=== PATIENT | female | born 1990 | race African-American/Black ===

== ENCOUNTER 2023-05-18 13:03 | Outpatient (AMB) | payer OTHER, SELFPAY ==
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
[2023-05-18 13:19] VITALS: BP 122/80; PULSE 82; TEMP 36.4; O2SAT 97; BMI 39.3
== END 2023-05-18 13:49 | disposition home or self-care (01) ==
PROVIDERS: Visit Provider Nurse Practitioner Family
DX: S89.92XA Unspecified injury of left lower leg, initial encounter (principal)
CPT/HCPCS: 99213

== ENCOUNTER → 2023-09-04 14:39 | Outpatient (BNVA) | payer OTHER, SELFPAY | PROVIDERS: Visit Provider Physician Assistant Surgical ==

== ENCOUNTER 2023-10-16 08:04 | Outpatient (AMB) | payer OTHER, SELFPAY ==
--- NOTE | 2023-10-16 14:00 | A.OFFVIS_ITS ---
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 BMI 42.1: Details: Start time: 1.25pm, End time: 2.10pm ?I spent 40 minutes speaking with the patient on the phone plus an additional 5 minutes reviewing and updating records for a total of 45 minutes HPI Comments Details: Previous weight loss efforts: Keto diet, Atkins, Intermittent fasting, 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 Wakes up: 7am, Sleeps: 10pm to 5am Breakfast: Orgain protein shake Lunch: 1-2pm (sandwich or cereal) Dinner: 6pm (tacos, sandwich) Snacks: 10am (cereal bars or yogurts), 3-4pm (chips) Exercise: has a stepper Fluids: Coffee/Tea: none, soda: Regular Sprite, juice: iced tea with calories, ETOH: none PFSH Medical History (Updated 10/16/23 @ 14:02 by Barrie Perez MD) GERD (gastroesophageal reflux disease) Morbid obesity Surgical History (Updated 10/16/23 @ 14:02 by Barrie Perez MD) Hx of tonsillectomy Family History (Updated 09/04/23 @ 15:01 by Yasmeen Escobar CMA) Maternal Aunt Breast cancer Social History (Updated 09/04/23 @ 15:01 by Yasmeen Escobar CMA) Alcohol intake: current Alcohol intake frequency: holidays/special occasions only Alcohol type: wine and hard liquor Patient Tobacco Use Status: Never used Tobacco Physical Exam Vital Signs: BMI result Body Mass Index 42.1 Telehealth Telehealth Location of provider rendering services: practice address Location of patient: address on file Patient Identification confirmed using: Name, : Yes Telehealth method: voice only Patient verbally consented to treatment: Yes Patient verbally consented to billing insurance company: Yes Patient informed of any privacy concerns related to visit: Yes Minutes spent on Phone/Video with Pt.: 45 Assessment & Plan Assessment & Plan (1) Morbid obesity: Code(s): E66.01 - Morbid (severe) obesity due to excess calories Category: Medical Plan: 1.? Plan for lap sleeve gastrectomy. If diaphragmatic or ventral hernias are present at time of surgery, these will be repaired laparoscopically as well. Risks and complications were discussed in detail including possible conversion to an open procedure, anastomotic leak, bleeding requiring transfusion, small bowel obstruction, , DVT and pulmonary embolism, cardiac, or pulmonary complications, as residential complications such as anastomotic ulcer, insufficient weight loss and vitamin deficiencies. I emphasized the importance of close follow-up, adherence to instructions and good communication. 2.? Please send me weight measurements as soon as possible and then once a week. Always include your diet and exercise plan. 3. Start the stepper. Goal is to burn 2000 calories per week on exercise, which means either 300 calories daily, or 400 calories 5 days per week, or 500 calories 4 days per week, or 650 calories 3 days per week. Start also weight exercises with 20-30lbs for chest/shoulders/abdomen and 40-50lbs for thighs doing 2 sets of 15 repetitions each. 4. The best choice would be to purchase a stationary bike, elliptical or treadmill at home that can track calories. Let me know if you do so I can give you an exercise plan. 5.?It is important of avoiding and for at least 18 months postoperatively and has been discussed at the infosession. 6. Goal is to lose at least 1.5-2lbs per week 7. Goal to lose 10% of your weight before surgery, which is about 27lbs. Ultimate weight goal: 250lbs before surgery 8. Please follow the diet plan exactly without any change. If you don't like something about the plan or you feel hungry you need to communicate with me so I can help you revise the plan. You should not change the plan yourself. Orders: Orders Insulin 10/16/23 E66.01 - Morbid (severe) obesity due to excess calories, K21.9 - Gastro-esophageal reflux disease without esophagitis H Pylori Breath Test 10/16/23 E66. - Morbid (severe) obesity due to excess calories, K21.9 - Gastro-esophageal reflux disease without esophagitis Comprehensive Met. Panel 10/16/23 E66. - Morbid (severe) obesity due to excess calories, K21.9 - Gastro-esophageal reflux disease without esophagitis Zinc 10/16/23 E66. - Morbid (severe) obesity due to excess calories, K21.9 - Gastro-esophageal reflux disease without esophagitis Vitamin B1 10/16/23 E66. - Morbid (severe) obesity due to excess calories, K21.9 - Gastro-esophageal reflux disease without esophagitis Vitamin A 10/16/23 E66. - Morbid (severe) obesity due to excess calories, K21.9 - Gastro-esophageal reflux disease without esophagitis Vitamin D 25-OH Total 10/16/236. - Morbid (severe) obesity due to excess calories, K21.9 - Gastro-esophageal reflux disease without esophagitis US abdomen comp w elastography 10/16/23. - Morbid (severe) obesity due to excess calories, K21.9 - Gastro-esophageal reflux disease without esophagitis Hemoglobin A1c 10/16/23 E66. - Morbid (severe) obesity due to excess calories, K21.9 - Gastro-esophageal reflux disease without esophagitis Complete Blood Count Auto Diff 10/16/236. - Morbid (severe) obesity due to excess calories, K21.9 - Gastro-esophageal reflux disease without esophagitis Lipid Panel 10/16/236. - Morbid (severe) obesity due to excess calories, K21.9 - Gastro-esophageal reflux disease without esophagitis IRON PROFILE 10/16/23 E66. - Morbid (severe) obesity due to excess calories, K21.9 - Gastro-esophageal reflux disease without esophagitis Vitamin B12 and Folate 10/16/23 E66. - Morbid (severe) obesity due to excess calories, K21.9 - Gastro-esophageal reflux disease without esophagitis C Reactive Protein 10/16/23 E66. - Morbid (severe) obesity due to excess calories, K21.9 - Gastro-esophageal reflux disease without esophagitis TSH reflex Free T4 10/16/23 E66. - Morbid (severe) obesity due to excess calories, K21.9 - Gastro-esophageal reflux disease without esophagitis Ferritin 10/16/23 E66.01 - Morbid (severe) obesity due to excess calories, K21.9 - Gastro-esophageal reflux disease without esophagitis XR chest 2V 10/16/23 E66.01 - Morbid (severe) obesity due to excess calories, K21.9 - Gastro-esophageal reflux disease without esophagitis ECG 12 lead EKG 10/16/23 E66.01 - Morbid (severe) obesity due to excess calories, K21.9 - Gastro-esophageal reflux disease without esophagitis FL upper GI w air 10/16/23 E66.01 - Morbid (severe) obesity due to excess calories, K21.9 - Gastro-esophageal reflux disease without esophagitis Referrals Behavioral Health Referral E66.01 - Morbid (severe) obesity due to excess calories, K21.9 - Gastro-esophageal reflux disease without esophagitis Nutrition/Dietitian Referral E66.01 - Morbid (severe) obesity due to excess calories, K21.9 - Gastro-esophageal reflux disease without esophagitis
[2023-10-16 14:12] VITALS: BMI 42.1
== END 2023-10-17 16:00 | disposition home or self-care (01) ==
LOC: HO.HBS 08:04
PROVIDERS: PCP Internal Medicine; Visit Provider Surgery
DX: E66.01 Morbid (severe) obesity due to excess calories (principal)
CPT/HCPCS: 99204

== ENCOUNTER → 2023-10-16 08:04 | Outpatient (BNVA) | payer OTHER, SELFPAY | PROVIDERS: PCP Internal Medicine; Visit Provider Surgery ==

== ENCOUNTER 2023-10-30 09:21 | Outpatient (REF) | payer OTHER, SELFPAY ==
--- NOTE | ~2023-10-30 | XR_ITS ---
EXAMINATION: XR chest 2V CLINICAL INFORMATION: Reason for Exam E66.01 - Morbid (severe) obesity due to excess calories COMPARISON: None TECHNIQUE: 2 views of the chest FINDINGS: Clear lungs. No pneumothorax or pleural effusion. Normal cardiomediastinal silhouette. XR/XR chest 2V Impression: * Clear lungs.
--- NOTE | ~2023-10-30 | US_ITS ---
EXAMINATION: US COMPLETE ABDOMEN WITH LIVER ELASTOGRAPHY CLINICAL INFORMATION: Morbid obesity. COMPARISON: None available. TECHNIQUE: Real-time imaging of the abdominal viscera. Noninvasive ultrasound liver fibrosis assessment is performed using Vladimir ElastPQ point quantification shear wave elastography (2D-SWE) with a C5-2 MHz transducer. Multiple elastography samples are obtained. FINDINGS: PANCREAS: Normal. The visualized pancreatic head and body are normal in appearance. The remainder of the pancreas is obscured from visualization by the overlying bowel gas. ABDOMINAL AORTA: The proximal, middle, and distal aortic segments are normal in caliber. INFERIOR VENA CAVA: Visualized portions are normal. LIVER: The liver demonstrates normal contour and increased echogenicity. No focal lesion or intrahepatic biliary duct dilatation. The right lobe measures 17.1 cm in length. The left lobe measures 9.1 cm in length. Portal flow is towards the liver (hepatopetal). Shear wave liver elastography median stiffness is 1.79 m/s (reference: normal median stiffness is 1.3 m/s or less). IQR/median stiffness to assess sampling precision is 0.16 (reference: good quality data set is IQR/median stiffness of 0.15 or less). GALLBLADDER: Normal. The gallbladder is physiologically distended without evidence of stones, sludge, polyps, wall thickening or pericholecystic fluid. COMMON BILE DUCT: Normal in caliber measuring 0.2 cm in diameter. RIGHT KIDNEY: Normal. No hydronephrosis. No renal calculi or focal parenchymal lesions. The kidney measures 11.4 cm in maximum dimension. LEFT KIDNEY: At the lower pole, a 5 mm nonobstructing calculus is seen, with twinkle artifact. No hydronephrosis. No renal calculi or focal parenchymal lesions. The kidney measures 11.5 cm in maximum dimension. SPLEEN: Normal. The spleen measures 10.4 cm in maximum dimension. FREE FLUID: None. US/US abdomen comp w elastography IMPRESSION: 1. There is generalized increase in hepatic echotexture, consistent with fatty infiltration or hepatocellular disease. Please correlate clinically. No focal hepatic mass or intrahepatic biliary dilatation is seen. 2. There is borderline hepatomegaly. 3. Liver elastography: Although measurements are suggestive of compensated advanced chronic liver disease, there is statistical variability of the sampling which decreases accuracy. 4. 5 mm nonobstructing left renal lower pole calculus is seen. REFERENCE: Society of Radiologists in Ultrasound Liver Stiffness Thresholds (2020): LIVER STIFFNESS THRESHOLDS: *Liver Stiffness equal or less than 1.3 m/s: High probability of being normal. *Liver Stiffness less than 1.7 m/s: In the absence of other known clinical signs, rules out compensated advanced chronic liver disease. *Liver Stiffness 1.7-2.1 m/s: Suggestive of compensated advanced chronic liver disease but need further test for confirmation. *Liver Stiffness over 2.1 m/s: Rules in compensated advanced chronic liver disease. *Liver Stiffness over 2.4 m/s: Suggestive of clinically significant portal hypertension. QUALITY OF DATA SET: *IQR/Median value equal or less than 0.15 implies a quality data set. *IQR/Median value over 0.15 implies a poor quality data set. SIGNIFICANT CHANGE FROM PRIOR EXAM: Significant change if liver stiffness measurement is 10% or greater from prior exam. OTHER CONSIDERATIONS: The stage of liver fibrosis may be overestimated in the setting of acute hepatitis, liver inflammation, elevated liver function tests, hepatic vascular congestion, obstructive cholestasis, non-fasting state, and infiltrative diseases such as amyloidosis and lymphoma. In some patients with NAFLD, the liver stiffness thresholds for compensated advanced chronic liver disease may be lower. In causes other than viral hepatitis and NAFLD, liver stiffness thresholds are not well established.
== END 2023-10-30 09:22 | disposition home or self-care (01) ==
LOC: HO.US 09:21
PROVIDERS: PCP Internal Medicine; Visit Provider Surgery
DX: E66.01 Morbid (severe) obesity due to excess calories (principal); K21.9 Gastro-esophageal reflux disease without esophagitis
CPT/HCPCS: 71046; 76700; 76981

== ENCOUNTER 2023-11-04 14:25 | Outpatient (AMB) | payer OTHER, SELFPAY ==
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
== END 2023-11-04 14:38 | disposition home or self-care (01) ==
LOC: HO.HBST 14:25
PROVIDERS: PCP Internal Medicine; Visit Provider Counselor Mental Health
DX: F48.9 Nonpsychotic mental disorder, unspecified (principal); E66.01 Morbid (severe) obesity due to excess calories
CPT/HCPCS: 90791

== ENCOUNTER → 2023-11-04 14:25 | Outpatient (BNVA) | payer OTHER, SELFPAY | PROVIDERS: PCP Internal Medicine; Visit Provider Counselor Mental Health ==

== ENCOUNTER 2023-11-06 08:29 | Outpatient (REF) | payer OTHER, SELFPAY ==
[2023-11-06 08:50] LABS: MANUAL DIFF FLAG NO
[2023-11-06 08:59] LABS: Basophils Percent Auto 0.3 % (0-2); Eosinophils Absolute Auto 0.1 X10*3/uL (0.0-0.4); Eosinophils Percent Auto 1.2 % (0-4); Hematocrit 32.1 % (37.0-47.0); Hemoglobin 9.3 g/dl (12.0-16.0); Imm Gran Abs Auto 0.03 X10*3/uL (0.00-0.03); Imm Gran Pct Auto 0.4 % (0.0-0.4); Lymphocytes Absolute Auto 2.8 X10*3/uL (1.2-4.9); Lymphocytes Percent Auto 37.7 % (20-40); Mean Corpuscular Hemoglobin 19.9 pg (27.0-33.0); Mean Corpuscular Volume 68.7 fL (80.0-98.0); Mean Platelet Volume 8.4 fL (9.4-12.3); Monocytes Absolute Auto 0.4 X10*3/uL (0.1-1.2); Monocytes Percent Auto 5.5 % (2-11); Neutrophils Absolute Auto 4.1 x10*3/uL (2.0-8.3); Neutrophils Percent Auto 54.9 % (45-73); Platelet Count 433 X10*3/uL (160-400); Red Blood Count 4.67 X10*6/uL (4.20-5.50); Red Cell Distribution Width 18.8 % (11.0-16.0); White Blood Count 7.5 X10*3/uL (4.8-10.8)
[2023-11-06 09:07] LABS: Estimated Average Glucose 128 mg/dL; Hemoglobin A1c % 6.1 % (<6.0)
[2023-11-06 09:48] LABS: Alanine Aminotransferase 20 U/L (0-31); Albumin Level 3.8 g/dL (3.5-5.0); Alkaline Phosphatase 82 U/L (39-117); Anion Gap 12 (12-20); Aspartate Amino Transferase 15 U/L (5-31); Bilirubin Total 0.2 mg/dL (0.0-1.0); Blood Urea Nitrogen 9 mg/dL (9-16); C Reactive Protein 2.22 mg/dL (< or = 0.50); Calcium 9.2 mg/dL (8.4-10.2); Carbon Dioxide 24 mmol/L (22-29); Chloride 108 mmol/L (96-108); Cholesterol 148 mg/dL (<200); Estimated Glomerular Filt Rate > 60; Glucose Random 98 mg/dL (60-115); HDL Cholesterol 58 mg/dL (>40); Iron 16 mcg/dL (30-160); LDL Cholesterol Calculated 78 mg/dL (<100); Percent Iron Saturation 4 % (15-50); Potassium 4.3 mmol/L (3.3-5.1); Sodium 140 mmol/L (135-145); Total Iron Binding Capacity 397 mcg/dL (228-428); Total Protein 7.4 g/dL (6.5-8.0); Triglycerides 62 mg/dL (<150); Unsaturated Iron Binding 381 ug/dL
[2023-11-06 09:56] LABS: TSH reflex Free T4 2.97 uIU/mL (0.32-4.0)
[2023-11-06 10:11] LABS: Ferritin 8 ng/mL (10-122); Insulin 17 uU/mL (2-29)
[2023-11-06 11:15] LABS: Folate 8.3 ng/mL (> or = 4.0); Vitamin B12 411 pg/mL (200-900)
--- NOTE | 2023-11-06 12:59 | ECG_ITS ---
Test Reason : E66.01 Blood Pressure : / mmHG Vent. Rate : 071 BPM Atrial Rate : 071 BPM P-R Int : 146 ms QRS Dur : 094 ms QT Int : 410 ms P-R-T Axes : 027 035 034 degrees QTc Int : 445 ms Normal sinus rhythm Normal ECG No previous ECGs available Referred By: Barrie Perez Electronically Signed By:Gaurang Avelar
[2023-11-10 23:02] LABS: Zinc 50 mcg/dL (60-130)
[2023-11-11 00:38] LABS: Vitamin A 24 mcg/dL (38-98)
[2023-11-12 15:28] LABS: Vitamin B1 8 nmol/L (8-30)
== END 2023-11-06 08:30 | disposition home or self-care (01) ==
LOC: HO.LAB 08:29
PROVIDERS: PCP Internal Medicine; Visit Provider Surgery
DX: E66.01 Morbid (severe) obesity due to excess calories (principal); K21.9 Gastro-esophageal reflux disease without esophagitis
CPT/HCPCS: 36415; 80053; 80061; 82306; 82607; 82728; 82746; 83036; 83525; 83540; 84425; 84443; 84590; 84630; 85025; 86140; 93005

== ENCOUNTER → 2023-11-06 12:59 | Outpatient (BNV) | payer OTHER, SELFPAY | PROVIDERS: PCP Internal Medicine; Visit Provider Internal Medicine Cardiovascular Disease | DX: E66.01 Morbid (severe) obesity due to excess calories (principal); K31.9 Disease of stomach and duodenum, unspecified | CPT/HCPCS: 93010 ==

== ENCOUNTER 2023-11-18 08:52 | Outpatient (REF) | payer OTHER, SELFPAY ==
--- NOTE | ~2023-11-18 | FL_ITS ---
EXAMINATION: XR FLUOROSCOPY UPPER GI WITH AIR CLINICAL INFORMATION: Preop evaluation prior to bariatric surgery COMPARISON: None TECHNIQUE: Fluoroscopic air contrast upper GI examination was performed utilizing standard techniques with thin and thick barium and effervescent granules. Numerous spot images were obtained. FINDINGS: Dual and single contrast images of the esophagus demonstrate normal caliber, contour, and mucosal pattern. No evidence of stricture, mass, or ulcerations identified. Esophageal peristalsis was normal. A small type I hiatal hernia is present. Significant gastroesophageal reflux is seen up to the thoracic inlet. Dual contrast and single contrast images of the stomach demonstrated a normal contour. Evaluation of the superior wall and greater curvature is somewhat limited by suboptimal barium coating. The gastric rugal folds have a thickened appearance. There is prominence of the areae gastricae. No masses or ulcerations seen. Contrast freely passed into the gastric antrum and duodenal bulb without delay. Single and air-contrast images of the duodenal bulb demonstrate no abnormality. The duodenal sweep has a normal appearance, course, and mucosal fold appearance. No malrotation. The imaged proximal jejunum has a normal fold pattern and caliber. FLUOROSCOPY TIME: 3 minutes 44 seconds Number of Spot Images: 8 Number of Cine: 10 DOSE AREA PRODUCT: 3303 uGy-m2 (microgray-meter squared) FL/FL upper GI w air IMPRESSION: 1. Small type I hiatal hernia. 2. Severe gastroesophageal reflux. 3. Thickened appearance of the gastric rugal folds that likely represents gastritis. This procedure was performed by Bubba Parks PA-C, and supervised by Dr. Caldwell
== END 2023-11-18 08:53 | disposition home or self-care (01) ==
LOC: HO.XRAY 08:52
PROVIDERS: PCP Internal Medicine; Visit Provider Surgery
DX: E66.01 Morbid (severe) obesity due to excess calories (principal); K21.9 Gastro-esophageal reflux disease without esophagitis
CPT/HCPCS: 74246

== ENCOUNTER → 2023-11-18 08:54 | Outpatient (BNV) | payer OTHER, SELFPAY | PROVIDERS: PCP Internal Medicine; Visit Provider Physician Assistant Surgical | DX: K21.9 Gastro-esophageal reflux disease without esophagitis (principal); E66.01 Morbid (severe) obesity due to excess calories; Z01.818 Encounter for other preprocedural examination | CPT/HCPCS: 74246 ==

== ENCOUNTER 2023-11-19 08:11 | Outpatient (AMB) | payer OTHER, SELFPAY ==
[2023-11-19 08:33] VITALS: BP 124/80; PULSE 86; TEMP 36.6; O2SAT 95; BMI 42.1
--- NOTE | 2023-11-19 08:33 | MHC.OFFWIV ---
Intake Vital Signs 11/19/23 08:33 Height 5 ft 8 in Weight 277 lb BMI 42.1 BP 124/80 Blood Pressure Location Rt brachial Position Sitting Pulse 86 Pulse Source Pulse Oximeter Temp 97.8 F Temp Source Oral Pulse Oximetry (%) 95 Oxygen Delivery Method Room Air Intake Visit Reasons: EP bronchitis cough Intake Note: pt is here for cough, suspects bronchitis Patient Tobacco Use Status: Never used Tobacco Allergies amoxicillin Allergy (Unknown, Verified 11/19/23 08:33) nausea and vomiting Penicillins Adverse Reaction (Intermediate, Verified 11/19/23 08:33) Vomiting Do you need a note to return to daycare/school/sports/work: No HPI HPI Comments History of Present Illness Details 33 y/o female patient who presents to walk in clinic with c/o cough since thursday. [facility] Medical History (Updated 11/11/23 @ 14:27 by Barrie Perez MD) GERD (gastroesophageal reflux disease) Morbid obesity Surgical History (Updated 10/16/23 @ 14:02 by Barrie Perez MD) Hx of tonsillectomy Family History (Updated 09/04/23 @ 15:01 by Yasmeen Escobar CMA) Maternal Aunt Breast cancer Social History (Updated 09/04/23 @ 15:01 by Yasmeen Escobar CMA) Alcohol intake: current Alcohol intake frequency: holidays/special occasions only Alcohol type: wine and hard liquor Patient Tobacco Use Status: Never used Tobacco Review of Systems Const All systems reviewed & are unremarkable except as noted in HPI and below Physical Exam Vital Signs: Last Vital Signs Temp 97.8 F 11/19/23 08:33 Pulse 86 11/19/23 08:33 BP 124/80 11/19/23 08:33 Pulse Ox 95 11/19/23 08:33 Oxygen Delivery Method Room Air 11/19/23 08:33 BMI result Body Mass Index 42.1 Const General: comfortable and no acute distress Nutritional Appearance: obese Orientation/consciousness: patient oriented x3 HEENT Head: Yes normocephalic Ears: external ears normal and TM abnormal bulging and with fluid behind the TM bilateral; not bullous, not perforated and not retracted General nose exam: Normal nasal mucous membranes and turbinates present Face and sinus: Yes sinuses nontender Throat: Yes posterior oropharynx normal Resp Effort & Inspection: normal respiratory effort, able to speak in complete sentences and Actively coughing Auscultation: clear to auscultation bilaterally, no crackles, no rales, no rhonchi and no wheezes Cardio Rate: regular rate Rhythm: regular rhythm Neuro General: patient oriented x3, gait normal and moves all extremities Psych Speech and movement: Normal speech and movement present Assessment & Plan Assessment & Plan (1) Cough in adult: Code(s): R05.9 - Cough, unspecified Plan: - OTC cough remedies - Warm fluids with honey - Acetaminophen for pain relief. Medications: New azithromycin 500 mg PO DAILY 3 tabs 0RF 3 days R05.9 - Cough, unspecified benzonatate 100 mg PO TID 30 caps 0RF R05.9 - Cough, unspecified Coding Level of Care Code Est Pt Level 3 (92623) Diagnoses Cough in adult R05.9 Time Spent (min) 15
== END 2023-11-19 10:27 | disposition home or self-care (01) ==
PROVIDERS: PCP Internal Medicine; Visit Provider Nurse Practitioner Family
DX: R05.9 Cough, unspecified (principal)
CPT/HCPCS: 99213

== ENCOUNTER 2023-12-09 12:45 | Outpatient (AMB) | payer OTHER, SELFPAY ==
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
== END 2023-12-09 13:20 | disposition home or self-care (01) ==
LOC: HO.HBST 13:17
PROVIDERS: PCP Internal Medicine; Visit Provider Counselor Mental Health
DX: F48.9 Nonpsychotic mental disorder, unspecified (principal); E66.01 Morbid (severe) obesity due to excess calories
CPT/HCPCS: 90832

== ENCOUNTER → 2023-12-09 12:45 | Outpatient (BNVA) | payer OTHER, SELFPAY | PROVIDERS: PCP Internal Medicine; Visit Provider Counselor Mental Health ==

== ENCOUNTER 2024-03-22 08:04 | Day surgery (SDC) | payer OTHER, SELFPAY ==
[2023-12-11 15:17] VITALS: BMI 42.1
--- NOTE | 2024-01-04 13:20 | P.CONAN_ITS ---
HPI - Anesthesia Eval Consult details Narrative: 34yo F for Upper Endoscopy PMFSH Active Problems Active Problems: All Active Problems Vitamin B12 deficiency (Acute) Vitamin A deficiency (Acute) Vitamin D deficiency (Acute) Anemia (Acute) Unspecified nonpsychotic mental disorder (Acute) GERD (gastroesophageal reflux disease) (Acute) Morbid obesity (Acute) Past Medical History Medical History (Updated 11/11/23 @ 14:27 by Barrie Perez MD) GERD (gastroesophageal reflux disease) Morbid obesity Family History Family History (Updated 09/04/23 @ 15:01 by Yasmeen Escobar CMA) Maternal Aunt Breast cancer Surgical History Surgical History (Updated 10/16/23 @ 14:02 by Barrie Perez MD) Hx of tonsillectomy Social History Social History (Updated 09/04/23 @ 15:01 by Yasmeen Escobar CMA) Alcohol intake: current Alcohol intake frequency: holidays/special occasions only Alcohol type: wine and hard liquor Patient Tobacco Use Status: Never used Tobacco Meds Allergies Allergy/AdvReac Type Severity Reaction Status Date / Time amoxicillin Allergy Unknown nausea and Verified 11/19/23 08:33 vomiting Penicillins AdvReac Intermediate Vomiting Verified 11/19/23 08:33 Home Medications ?Medication ?Instructions ?Recorded ?Confirmed ?Last Taken ?Type omeprazole 20 mg capsule,delayed 20 mg PO DAILY 10/16/23 12/11/23 Unknown His tory release Exam Height,Weight and Vital Signs: Height 5 ft 8 in Weight 125.645 kg Assessment and Plan Assessment Anesthesia Assessment: Chart Reviewed
[2024-03-22 08:11] VITALS: BP 141/74; PULSE 80; RESP 18; TEMP 36.4; O2SAT 96; BMI 44.1
[2024-03-22 08:25] LABS: UPreg QC Valid YES; Urine Pregnancy NEGATIVE (NEGATIVE)
[2024-03-22] MEDS: Lactated Ringers 1,000 ML 80 ML IVCONT (08:32)
--- NOTE | 2024-03-22 11:19 | MHC.SHP ---
Pre-Procedural Eval Section A - 24 Hr Update-Section A only Date of Service: 03/22/24 The patient is an INPATIENT: No The patient has been examined within 24 hours of the surgical procedure. The History & Physical has been completed within 30 days and I have reviewed it.: Yes Section B - Complete if H&P > 30 days Chief Complaint: obesity Details of Present Illness: GERD Relevant Family History (Specify if Yes): No Relevant Social History: None Present Medications: None Medical History: No relevant PMH History of Previous Operations: No relevant previous surgery Allergies: Allergies Allergy/AdvReac Type Severity Reaction Status Date / Time amoxicillin Allergy Unknown nausea and Verified 11/19/23 08:33 vomiting Penicillins AdvReac Intermediate Vomiting Verified 11/19/23 08:33 Review of Systems Sugical H&P ROS: Negative: Constitution, Cardiovascular, Respiratory, Neurological, Psychiatric, Hem-Onc, Allergic/Immunologic, Gastrointestinal, Genitourinary, Musculoskeletal, Integumentary, Endocrine and Eyes/Ears/Nose/Throat Exam Surgical H&P Exam: Normal: HEENT, Normal: Heart, Normal: Lungs, Normal: Extremities, Normal: Abdomen, Normal: Skin and Normal: Neurological Plan Diagnosis/Plan: Unchanged (EGD to assess etiology of GERD. Risks of bleeding and perforation were discussed with the patient and she is in agreement with the plan.) I have reviewed the history and physical and performed a pertinent physical examination on my patient. No changes have occurred unless specified. Time Spent With Patient Time: Total time managing care of this patient today ____ minutes.
--- NOTE | 2024-03-22 11:21 | P.BOP_ITS ---
Brief Operative Note Date of Service: 03/22/24 Pre-op diagnosis: GERD Post-op diagnosis: same Procedure: PROCEDURE DATE: 03/22/2024 PREOPERATIVE DIAGNOSIS: GERD POSTOPERATIVE DIAGNOSIS: ?Same as above. 1) small diaphragmatic hernia PROCEDURE: Hxelzsan-pakkwp-ouvzawexmyew with biopsies Surgeon: Joaquin Perez M.D.. Ph.D. Product Test Engineer: None ? Anesthesia: IV sedation Estimated blood loss: ?Minimal FINDINGS AND PROCEDURE: ? OPERATIVE INDICATIONS: ?The patient is a 34 year old female known to me who is interested in bariatric surgery. The patient has GERD. Based on this information I recommended an upper endoscopy to evaluate the patient's symptoms. Risks and complications of the surgery were discussed with the patient in advance particularly the possibility of perforation or bleeding that may require surgical intervention. The patient understood the risks and was in agreement with the plan. ? PROCEDURE: After informed consent was obtained by the patient, the patient was ?transferred to the Operating Room and was placed in the supine position.? After successful induction of IV sedation, a mouth block was inserted and the patient was placed in the left lateral decubitus position. An upper endoscopy was performed next, the oropharynx and esophagus appeared within the normal limits. There was a small 3cm hiatal hernia. The z-line was smooth. Two biopsies were obtained from the distal esophagus 2-3 cm proximal to the GE junction and two additional biopsies from the GE junction. The stomach was entered and it appeared to be of normal size. There was no gastritis. There was no stricture or ulcer. A biopsy was obtained from the gastric fundus and the antrum. No significant bleeding was noted from any of the biopsy sites. Retroflexion of the scope confirned the presence of a small diaphragmatic hernia. The scope was then advanced into the duodenum which appeared to be normal as well. At that point the duodenum ?and the stomach were decompressed and the scope was withdrawn from the patient's mouth. The patient extubated and was transferred in stable condition to the Recovery Room for further care. I was present and performed all steps of the procedure. There were no residents to assist with this case. Johnny Perez M.D., Ph.D. Surgeon: Barrie Perez MD Anesthesia: MAC Was an Product Test Engineer used for this Procedure?: No Estimated blood loss (mL): 0 IV fluids (mL): 400 Urine output (mL): 0 (No Barrios to record output) Pathology: other (1) antrum x1, 2) fundus x1, 3) GE junction x2, 4) distal esophagus x2) Condition: stable Disposition: PACU
[2024-03-22 12:09] VITALS: BP 131/78; PULSE 99; RESP 16; TEMP 36.6; O2SAT 98
[2024-03-22 12:14] VITALS: BP 124/80; PULSE 106; RESP 16; O2SAT 97
[2024-03-22 12:19] VITALS: BP 122/89; PULSE 103; RESP 16; O2SAT 95
[2024-03-22 12:24] VITALS: BP 128/73; PULSE 102; RESP 16; O2SAT 97
[2024-03-22 12:39] VITALS: BP 106/56; PULSE 87; RESP 16; TEMP 36.6; O2SAT 98
== END 2024-03-22 12:57 | disposition home or self-care (01) ==
PROVIDERS: Nurse Practitioner; PCP Internal Medicine; Visit Provider Surgery
PROC: 0DJ08ZZ Inspection of Upper Intestinal Tract, Via Natural or Artificial Opening Endoscopic (ICD-10-PCS; CPT 43235; principal; 2024-03-22 10:20)
DX: K21.9 Gastro-esophageal reflux disease without esophagitis (principal); E66.01 Morbid (severe) obesity due to excess calories; Z68.41 Body mass index [BMI] 40.0-44.9, adult; B96.81 Helicobacter pylori [H. pylori] as the cause of diseases classified elsewhere; K44.9 Diaphragmatic hernia without obstruction or gangrene; Z88.0 Allergy status to penicillin; Z79.899 Other long term (current) drug therapy
CPT/HCPCS: 43239; 81025; 88305; 88313; 88342; J1100; J1596; J2250; J2405; J2704

== ENCOUNTER → 2024-03-22 08:04 | Outpatient (BNV) | payer OTHER, SELFPAY | PROVIDERS: PCP Internal Medicine; Visit Provider Surgery | DX: K44.9 Diaphragmatic hernia without obstruction or gangrene (principal) | CPT/HCPCS: 43239 ==

== ENCOUNTER 2024-05-16 12:48 | Outpatient (REF) | payer OTHER, SELFPAY ==
[2024-05-18 15:58] LABS: H Pylori Breath Test Positive (Negative)
== END 2024-05-16 12:49 | disposition home or self-care (01) ==
LOC: HO.LNP 12:48
PROVIDERS: Surgery; PCP Internal Medicine; Visit Provider Physician Assistant Surgical
DX: Z11.0 Encounter for screening for intestinal infectious diseases (principal)
CPT/HCPCS: 83013; 99211

== ENCOUNTER 2024-06-16 08:57 | Outpatient (REF) | payer OTHER, SELFPAY ==
[2024-06-18 14:58] LABS: H Pylori Breath Test Negative (Negative)
== END 2024-06-16 08:58 | disposition home or self-care (01) ==
LOC: HO.LNP 08:57
PROVIDERS: PCP Internal Medicine; Visit Provider Physician Assistant Surgical
DX: A04.8 Other specified bacterial intestinal infections (principal)
CPT/HCPCS: 83013; 99211

== ENCOUNTER 2024-07-08 08:52 | Outpatient (AMB) | payer OTHER, SELFPAY ==
--- NOTE | 2024-07-08 08:53 | A.OFFVIS_ITS ---
VS Expanded 07/08/24 09:03 BP 127/74 Blood Pressure Location Rt brachial Blood Pressure Position Sitting Pulse 85 Pulse Source Pulse Oximeter Temp 97.9 F Temperature Source Temporal Artery Scan Pulse Oximetry 100 Oxygen Delivery Method Room Air Height 5 ft 8 in Weight 277 lb BMI 42.1 Body Fat % 49.8 Body Fat Mass 137.8 Fat Free Mass 139.2 Visceral Fat Rating 13.0 Body Water % 36.1 Body Water Mass 99.8 Muscle Mass/Score 132.0 Basal Metabolic Rate/Score 2,020 Intake Visit Reasons: OV Pre Op LSG 07/26/24 Allergies amoxicillin Allergy (Unknown, Verified 07/08/24 09:31) nausea and vomiting Penicillins Adverse Reaction (Intermediate, Verified 07/08/24 09:31) Vomiting Medication List - Last Reconciled 07/08/24 by Barrie Perez MD ondansetron 4 mg PO Q12H ondansetron HCl 4 mg PO Q6H PRN pantoprazole 40 mg PO DAILY polyethylene glycol 3350 17 grams PO DAILY sucralfate 10 mL PO BID HPI Comments Details: This is the preop visit for her upcoming surgery Wakes up: 7.30am, Sleeps: 12am Is using the Orgain shakes with almond milk Exercise: 45 min of the Arc x5/week [facility] Medical History (Updated 04/08/24 @ 18:03 by Barrie Perez MD) GERD (gastroesophageal reflux disease) Morbid obesity Surgical History Hx of tonsillectomy Family History Maternal Aunt Breast cancer Social History (Updated 07/08/24 @ 09:04 by Chelsie Goetz CMA) Alcohol intake: former Patient Tobacco Use Status: Never used Tobacco Physical Exam Vital Signs: Last Vital Signs Temp 97.9 F 07/08/24 09:03 Pulse 85 07/08/24 09:03 BP 127/74 07/08/24 09:03 Pulse Ox 100 07/08/24 09:03 Oxygen Delivery Method Room Air 07/08/24 09:03 BMI result Body Mass Index 42.1 GI Inspection: Yes normal to inspection and Yes obesity Palpation (GI): Soft to palpation Extrem Right lower extremity: normal to inspection Left lower extremity: normal to inspection Assessment & Plan Assessment & Plan (1) Morbid obesity: Code(s): E66.01 - Morbid (severe) obesity due to excess calories Category: Medical Plan: 1. Plan for lap sleeve gastrectomy including upper GI endoscopy. All tests has been completed and reviewed and the patient is cleared for the surgery. ?If diaphragmatic or ventral hernias are present at time of surgery, these will be repaired laparoscopically as well. Risks and complications were discussed in detail including possible conversion to an open procedure, anastomotic leak, bleeding requiring transfusion, small bowel obstruction, , DVT and pulmonary embolism, cardiac, or pulmonary complications, as senior care complications such as anastomotic ulcer, insufficient weight loss and vitamin deficiencies. I emphasized the importance of close follow-up, adherence to instructions and good communication. So far she has proven to be an excellent communicator and very compliant with all our directions accomplishing a great weight loss. I believe that she is an excellent candidate and she is ready. 2. Preop prescriptions were provided and explained the purpose of each one. Need to be purchased preop. Start Pantoprazole now as you get it from the pharmacy, 1 pill per day. Sucralfate and Zofran are for after surgery as needed. 3. Bowel prep: please do 7 packets ?of Miralax mixing each one with a an 8oz glass of water, crystal light, gatorade zero, or propel ?on 07/24/24 and the same amount on 07/25/24. The Miralax you begin with one packet at a time in 8oz water or crystal light, gatorade zero, or propel ?as early in the day as you can and you do them back to back until you finish them. Continue the protein shakes during ?the bowel prep. 4. Needs to purchase 1oz medicine cups . 5. Needs to purchase Children's liquid Tylenol for postop pain control. 6. Avoid aspirin, motrin, Advil, Aleve, Meloxicam, Excedrin, Ibuprofen, Naproxyn. Tylenol is OK. 7. She needs to purchase the Celebrate multivitamins from the hospital's gift shop. 8. Will do basic preop blood work-up any day between Thursday07/18/24 and Thursday07/23/24 fasting for 12 hours and is scheduled to see the Anesthesiologist prior to the day of surgery. 9. Importance of adherence to postop folllow-up and recommendations was underscored and she understands that. 10. Stop food and bars as of tomorrow 07/09/24 and continue with 5 ORGAIN protein shakes (TWO scoops EACH in 8oz-12oz almond milk) at 9am-11am, 12pm-2pm, 3pm-5pm, 6pm-8pm and at 9pm-11pm 11. No soups, broths or V8 12. The patient's?medical?history has been reviewed and they are considered low risk for post op DVT and therefore DVT prophylaxis is not considered necessary. Travel after surgery was reviewed. The patient has not disclosed any travel plans during the first 30 days after surgery and they have been advised that within the first 30 days after surgery any bus, plane, train or car travel over 2 hours in duration is contraindicated due to the possibility of developing blood clots from immobility. Any travel, needs to include periods of ambulation of 10 minutes in duration every 2 hours.? Patient was instructed to discuss any plans for travel during this period with their bariatric surgeon.? 13. Please take at the day of surgery the following medications: NONE 14. Stop any control pills and don't use them for one month after surgery 15. Absolutely no smoking or vaping, or marijuana until the surgery and for at [place] the first 4 weeks. Only nicotine patches are allowed. 16. Send me weight measurements daily including the surgery date 17. Avoid any steroids by mouth for any reason. Let me know if someone pre scribes them to you 18. These instructions supersede anything else you read in the handbook, anything you watched in videos or classes or you were told by any other provider. If there is any conflict, you follow the above instructions and nothing else. Orders: Orders Comprehensive Met. Panel Today E66.01 - Morbid (severe) obesity due to excess calories Lipid Panel Today E66.01 - Morbid (severe) obesity due to excess calories Type and Screen Today E66.01 - Morbid (severe) obesity due to excess calories Partial Thromboplastin Time Today E66.01 - Morbid (severe) obesity due to excess calories Complete Blood Count Auto Diff Today E66.01 - Morbid (severe) obesity due to excess calories TSH reflex Free T4 Today E66.01 - Morbid (severe) obesity due to excess calories Prothrombin Time INR Today E66.01 - Morbid (severe) obesity due to excess calories Hemoglobin A1c Today E66.01 - Morbid (severe) obesity due to excess calories C Reactive Protein Today E66.01 - Morbid (severe) obesity due to excess calories Insulin Today E66.01 - Morbid (severe) obesity due to excess calories Medications: New sucralfate 10 mL PO BID 600 mL 2RF K21.9 - Gastro-esophageal reflux disease without esophagitis ondansetron Only take one every 12 hours as needed if you have nausea 4 mg PO Q12H 20 tabs 0RF nausea and vomiting R11.0 - Nausea polyethylene glycol 3350 Mix each measuring cup with 8oz of water, Crystal light, or Gatorade zero, or Propel and do 7 measuring cups on 07/24/24 and another 7 measuring cups on 07/25/24 17 grams PO DAILY 238 grams 0RF Z01.818 - Encounter for other preprocedural examination pantoprazole 40 mg PO DAILY 90 tabs 0RF K21.9 - Gastro-esophageal reflux disease without esophagitis
[2024-07-08 09:03] VITALS: BP 127/74; PULSE 85; TEMP 36.6; O2SAT 100; BMI 42.1
== END 2024-07-08 12:35 | disposition home or self-care (01) ==
PROVIDERS: PCP Internal Medicine; Visit Provider Surgery
DX: E66.01 Morbid (severe) obesity due to excess calories (principal)
CPT/HCPCS: 99214

== ENCOUNTER 2024-07-26 07:53 | Inpatient (IN) | payer OTHER, SELFPAY ==
[2024-07-19 13:48] VITALS: BMI 39.9
[2024-07-20 07:57] LABS: MANUAL DIFF FLAG NO
[2024-07-20 08:25] LABS: Basophils Percent Auto 0.3 % (0-2); Eosinophils Absolute Auto 0.1 X10*3/uL (0.0-0.4); Eosinophils Percent Auto 0.9 % (0-4); Estimated Average Glucose 120 mg/dL; Hematocrit 39.6 % (37.0-47.0); Hemoglobin 12.4 g/dl (12.0-16.0); Hemoglobin A1c % 5.8 % (<6.0); Imm Gran Abs Auto 0.03 X10*3/uL (0.00-0.03); Imm Gran Pct Auto 0.3 % (0.0-0.4); Lymphocytes Absolute Auto 3.3 X10*3/uL (1.2-4.9); Lymphocytes Percent Auto 37.7 % (20-40); Mean Corpuscular HGB Conc 31.3 g/dl (31.0-35.0); Mean Corpuscular Hemoglobin 24.8 pg (27.0-33.0); Mean Corpuscular Volume 79.2 fL (80.0-98.0); Mean Platelet Volume 8.8 fL (9.4-12.3); Monocytes Absolute Auto 0.5 X10*3/uL (0.1-1.2); Monocytes Percent Auto 5.9 % (2-11); Neutrophils Absolute Auto 4.7 x10*3/uL (2.0-8.3); Neutrophils Percent Auto 54.9 % (45-73); Platelet Count 353 X10*3/uL (160-400); Red Cell Distribution Width 15.6 % (11.0-16.0); Total Hemoglobin (HGBA1C) 3168.5261 umol/L; White Blood Count 8.6 X10*3/uL (4.8-10.8)
[2024-07-20 08:30] LABS: INTERNATIONAL NORM RATIO 1.2 (0.9-1.1); Prothrombin Time 13.4 SEC (10.9-12.4)
[2024-07-20 08:48] LABS: Alkaline Phosphatase 93 U/L (39-117); Anion Gap 9 (12-20); Aspartate Amino Transferase 32 U/L (5-31); Bilirubin Total 0.4 mg/dL (0.0-1.0); Blood Urea Nitrogen 7 mg/dL (9-16); C Reactive Protein 4.15 mg/dL (< or = 0.50); Calcium 9.7 mg/dL (8.4-10.2); Carbon Dioxide 26 mmol/L (22-29); Chloride 107 mmol/L (96-108); Cholesterol 132 mg/dL (<200); Creatinine Clr Calc Pharmacy 127.3; Estimated Glomerular Filt Rate > 60; Glucose Random 90 mg/dL (60-115); HDL Cholesterol 43 mg/dL (>40); LDL Cholesterol Calculated 71 mg/dL (<100); Potassium 3.7 mmol/L (3.3-5.1); Sodium 138 mmol/L (135-145); Total Protein 7.8 g/dL (6.5-8.0); Triglycerides 94 mg/dL (<150)
[2024-07-20 08:59] LABS: Alanine Aminotransferase 33 U/L (0-31)
[2024-07-20 09:06] LABS: Insulin 14 uU/mL (2-29); TSH reflex Free T4 2.97 uIU/mL (0.32-4.0)
--- NOTE | 2024-07-22 14:08 | P.CONAN_ITS ---
Documented by User: Jessica Estrada NP 07/22/24 14:09 HPI - Anesthesia Eval Consult details Narrative: 34yo F for Gastrectomy Sleeve - EGD, possible diaphragmatic hernia, possible ventral hernia, possible open PMFSH Active Problems Active Problems: All Active Problems H. pylori infection (Acute) Vitamin B12 deficiency (Acute) Vitamin A deficiency (Acute) Vitamin D deficiency (Acute) Anemia (Acute) Unspecified nonpsychotic mental disorder (Acute) GERD (gastroesophageal reflux disease) (Acute) Morbid obesity (Acute) Past Medical History Medical History GERD (gastroesophageal reflux disease) Morbid obesity Family History Family History Maternal Aunt Breast cancer Surgical History Surgical History History of esophagogastroduodenoscopy (EGD) Hx of tonsillectomy Social History Social History Are you a primary director critical care to a significant other at home: No Do you presently have visiting nurse or other home services: No Alcohol intake: former Patient Tobacco Use Status: Never used Tobacco Use of substances other than those prescribed or required for medical reasons: No Have you been hit, kicked, punched, or otherwise hurt by someone within the past year? If so, by whom?: No Are you DNR?: No Advance Directives: No Advance Directives Information Provided: No Advance Directives on File: No Recently lost weight without trying: No Eating poorly because of decreased appetite: No Nutrition Risks: No Nutritional Risk Patient : No : No Poor oral hygiene: Yes (two upper crowns) Meds Allergies Allergy/AdvReac Type Severity Reaction Status Date / Time amoxicillin Allergy Unknown nausea and Verified 07/26/24 08:26 vomiting clarithromycin Allergy Hives Verified 07/26/24 08:26 Penicillins AdvReac Intermediate Vomiting Verified 07/26/24 08:26 Home Medications ?Medication ?Instructions ?Recorded ?Confirmed ?Last Taken ?Type multivitamin 1 tab PO DAILY 07/19/24 07/19/24 Unknown History Exam Height,Weight and Vital Signs: Height 5 ft 9 in Weight 122.47 kg Pertinent Lab Results Pertinent Lab Results: Laboratory Tests 07/20/24 07/20/24 07:51 07:56 WBC 8.6 RBC 5.00 Hgb 12.4 D Hct 39.6 D MCV 79.2 L MCH 24.8 L MCHC 31.3 RDW 15.6 Plt Count 353 MPV 8.8 L Immature Gran % (Auto) 0.3 Neut % (Auto) 54.9 Lymph % (Auto) 37.7 Sterling % (Auto) 5.9 Eos % (Auto) 0.9 Baso % (Auto) 0.3 Lymph # (Auto) 3.3 Sterling # (Auto) 0.5 Eos # (Auto) 0.1 Baso # (Auto) 0.0 Abs Immat Gran (auto) 0.03 Absolute Neuts (auto) 4.7 Absolute Nucleated RBC 0.000 Nucleated RBC % (auto) 0.0 PT 13.4 H INR 1.2 H APTT 33.0 Sodium 138 Potassium 3.7 Chloride 107 Carbon Dioxide 26 Anion Gap 9 L BUN 7 L Creatinine 0.88 Estim Creat Clear Calc 127.3 Estimated GFR > 60 Random Glucose 90 Estimat Average Glucose 120 Hemoglobin A1c % 5.8 Insulin Level 14 Calcium 9.7 Total Bilirubin 0.4 AST 32 H ALT 33 H Alkaline Phosphatase 93 C-Reactive Protein 4.15 H Total Protein 7.8 Albumin 4.0 Triglycerides 94 Cholesterol 132 LDL Cholesterol, Calc 71 HDL Cholesterol 43 TSH 2.97 Blood Type A Positive Antibody Screen NEGATIVE Narrative Narrative: EKG 10/2023 Vent. Rate : 071 BPM Atrial Rate : 071 BPM P-R Int : 146 ms QRS Dur : 094 ms QT Int : 410 ms P-R-T Axes : 027 035 034 degrees QTc Int : 445 ms Normal sinus rhythm Normal ECG No previous ECGs available Assessment and Plan Assessment Anesthesia Assessment: Chart Reviewed Documented by User: Chloe Talley MD 07/26/24 10:26 [facility] Past Medical History Medical History GERD (gastroesophageal reflux disease) Morbid obesity Family History Family History Maternal Aunt Breast cancer Surgical History Surgical History History of esophagogastroduodenoscopy (EGD) Hx of tonsillectomy History of Problems with Anesthesia: No Social History Social History Are you a primary director critical care to a significant other at home: No Do you presently have visiting nurse or other home services: No Alcohol intake: former Patient Tobacco Use Status: Never used Tobacco Use of substances other than those prescribed or required for medical reasons: No Have you been hit, kicked, punched, or otherwise hurt by someone within the past year? If so, by whom?: No Are you DNR?: No Advance Directives: No Advance Directives Information Provided: No Advance Directives on File: No Recently lost weight without trying: No Eating poorly because of decreased appetite: No Nutrition Risks: No Nutritional Risk Patient : No : No Poor oral hygiene: Yes (two upper crowns) Meds Allergies Allergy/AdvReac Type Severity Reaction Status Date / Time amoxicillin Allergy Unknown nausea and Verified 07/26/24 08:26 vomiting clarithromycin Allergy Hives Verified 07/26/24 08:26 Penicillins AdvReac Intermediate Vomiting Verified 07/26/24 08:26 Home Medications ?Medication ?Instructions ?Recorded ?Confirmed ?Last Taken ?Type multivitamin 1 tab PO DAILY 07/19/24 07/19/24 Unknown History Exam Airway Mallampati Class: III TM Dist: >3cm Neck ROM: Full Loose/Missing/Broken Teeth: No Heart: RRR Lungs: CTA Assessment and Plan Assessment Anesthesia Assessment: Anesthesia Plan Discussed Final Anesthetic Review History of Problems with Anesthesia: No NPO: Yes ASA Class: II Final Preanesthetic Review: Meds/Allgs Chart Reviewed, Consent Obtained/Reviewed and Anes Risks/Benef Reviewed Patient Risk: Low Procedure Risk: Intermediate Anesthetic Plan Anesthetic Plan: GA Disposition: Standard PACU
[2024-07-26] VITALS (14 sets, daily range): BP systolic 120–152; BP diastolic 71–90; PULSE 76–99; RESP 14–20; TEMP 36.3–37.2; O2SAT 95–100; BMI 38.8; BMI 40.9
--- OUTSIDE RECORDS SUMMARY | 2024-07-26 07:59 | XMS_ITS | Encounter Summary ---
Author Organization [facility] Address [address] [place] [address] Care Team Providers Care Woolen Suiting Shrinker Name Role Phone Andreia Bernal Primary Care Provider Lukasz Marte MD Primary Care Provider Chirag Zabala MD Primary Care Provider Lukasz Garcia MD Primary Care Provider Alyssa marmolejo Encounter Details Date Type Department Care Team Description 04/19/2012 Release of Information Medical Records [address] [place] [address] Abstract, Provider Social History Tobacco Use Types Packs/Day Years Used Date Smoking Tobacco: Former Alcohol Use Standard Drinks/Week Comments No 0 (1 standard drink = 0.6 oz pur e alcohol) Sex Assigned at Date Recorded Not on file documented as of this encounter Plan of Treatment Not on file documented as of this encounter Visit Diagnoses Not on filedocumented in this encounter Care Teams Woolen Suiting Shrinker Relationship Specialty Start Date End Date Andreia Bernal PCP - General Pediatrics 03/12/12 02/09/14 Lukasz Mansfield MD PCP - General Internal Medicine 02/10/14 08/18/16 Chirag Reilly MD PCP - General Internal Medicine 08/19/16 7 Lukasz Mansfield MD PCP - General Internal Medicine 08/26/16 documented as of this encounter
--- OUTSIDE RECORDS SUMMARY | 2024-07-26 07:59 | XMS_ITS | Encounter Summary ---
Author Organization [facility] Address [address] [place] [address] Care Team Providers Care Scientist Electronics Name Role Phone Lukasz Mansfield MD Primary Care Provider Chirag Zabala MD Primary Care Provider Lukasz Garcia MD Primary Care Provider Alyssa marmolejo Reason for Visit * Reason Onset Date Comments sinus infection 08/08/2015 Encounter Details Date Type Department Care Team Description 08/08/2015 Telephone Adult [address] [address] Lukasz Mansfield MD sinus infection Social History Tobacco Use Types Packs/Day Years Used Date Smoking Tobacco: Former Cigarettes 1 Comments:2 cigs per day x1 y ear Alcohol Use Standard Drinks/Week Comments Yes 0 (1 standard drink = 0.6 oz pur e alcohol) occ Sex Assigned at Date Recorded Not on file documented as of this encounter Miscellaneous Notes * Telephone Encounter - Patricia Vazquez R.N. - 08/09/2015 11:12 AM EST Phone call returned, no answer, left message to return phone call. * Telephone Encounter - Luz Maria Ozuna APRN - 08/09/2015 10:57 AM EST I am assuming by this message that the augmentin is causing nausea/vomiting. D/c the augmentin and new rx sent for azithromycin * Telephone Encounter - Patricia Vazquez R.N. - 08/08/2015 4:55 PM EST Phone call returned, no answer, left message to return phone call. Forwarding to Regulo Ozuna for review. * Telephone Encounter - Evy Browning - 08/08/2015 12:07 PM EST Symptoms patient is presenting: the pt was seen by Luz Maria yesterday today she is vomitting and unable to take the medication she was given yesterday amoxicillin-clavulanate (AUGMENTIN) 875-125 MG per tablet If pain or injury related was it due to an accident at work or from a motor vehicle accident? NO If yes, gather 3rd libertarian insurance information Date of accident/Injury: How long has patient had these symptoms?: PCP: Lukasz Mansfield Payor: [facility] Linkedwith / Plan: [facility] [employer] / Product Type: HMO [id number] documented in this encounter Plan of Treatment Not on file documented as of this encounter Visit Diagnoses Not on filedocumented in this encounter Care Teams Scientist Electronics Relationship Specialty Start Date End Date Lukasz Mansfield MD PCP - General Internal Medicine 02/10/14 08/18/16 Chirag Reilly MD PCP - General Internal Medicine 08/19/16 7 Lukasz Mansfield MD PCP - General Internal Medicine 08/26/16 documented as of this encounter
--- OUTSIDE RECORDS SUMMARY | 2024-07-26 07:59 | XMS_ITS | Encounter Summary ---
Author Organization [facility] Address [address] [place] [address] Care Team Providers Care Manufacturing Engineering Intern Name Role Phone Lukasz Mansfield MD Primary Care Provider Alyssa marmolejo Reason for Visit * Reason Onset Date Comments medication problems 09/04/2016 Encounter Details Date Type Department Care Team Description 09/04/2016 Telephone OBGYN - [place] [address] [place], [place] [id number] Trinidad Gallego CNM [address] [place] [address] [id number] medication problems Social History Tobacco Use Types Packs/Day Years Used Date Smoking Tobacco: Former Cigarettes 1 Q uit: 08/16/2011 Comments:2 cigs per day x1 y ear Alcohol Use Standard Drinks/Week Comments Yes 0 (1 standard drink = 0.6 oz pur e alcohol) occ Sex Assigned at Date Recorded Not on file documented as of this encounter Miscellaneous Notes * Telephone Encounter - Promise Mendoza - 09/04/2016 1:58 PM EST Called and LM for patient to call office. If patient calls back, please schedule an appt with Trinidad Gallego CNM as she recommeded below. Thank you. * Telephone Encounter - Trinidad Gallego CNM - 09/04/2016 12:59 PM EST Patient can make an appointment to be seen to discuss these symptoms and possibly change the contraception. Trinidad Gallego CNM * Telephone Encounter - Mariza Jordanoe - 09/04/2016 11:25 AM EST What is the name of the medication patient is having a problem with?: drospirenone-ethinyl estradiol (MARTIN) 3-0.02 MG per tablet What is the problem?: patient is worried that the medication is not agreeing with her. She has had a headache since the first day of taking medication. Also now has a yeast infection. Is the patient calling about the problem? YES If the patient is not the caller who is? Is this a NEW medication?: YES How long has the patient been taking this medication? 3 weeks Who prescribed this medication for the patient? Trinidad Gallego Who is patients PCP?: Lukasz Mansfield Payor: [facility] / Plan: [facility] [place] / Product Type: HMO [id number] documented in this encounter Plan of Treatment Not on file documented as of this encounter Visit Diagnoses Not on filedocumented in this encounter Care Teams Manufacturing Engineering Intern Relationship Specialty Start Date End Date Lkuasz Mansfield MD PCP - General Internal Medicine 08/26/16 documented as of this encounter
--- OUTSIDE RECORDS SUMMARY | 2024-07-26 07:59 | XMS_ITS | Clinical Summary ---
Author Organization [facility] Address [address] [place] [address] Care Team Providers Care Support Services Manager Name Role Phone Lukasz Mansfield MD Primary Care Provider [phone] Surgical History Surgery Date Site/Laterality Comments TONSILLECTOMY PROCEDURE: HISTORICAL TONSILLECTOMY Medical History Medical History Date Comments PCOS (polycystic ovarian syndrome) DX:PCOS (polycystic ovarian syndrome) Family History Medical History Relation Name Comments Hypertension Mother Breast cancer Mother's side 1 aunt Relation Name Status Comments Brother 1 Alive Brother 2 Alive Brother 3 Alive Brother 4 Alive Brother 5 Alive Father Alive unknown Maternal Grandfather Alive Mother Alive gestational DM Mother's side 1 Mother's side 2 Other maternal great grandmother, diabetes Paternal Grandfather Paternal Grandmother Sister 1 Alive Sister 2 Alive Sister 3 Alive Sister 4 Alive Social History Tobacco Use Types Packs/Day Years Used Date Smoking Tobacco: Some Days Cigarettes Last attempted to quit: 08/16/2011 Smokeless Tobacco: Never Alcohol Use Standard Drinks/Week Comments Yes 0 (1 standard drink = 0.6 oz pur e alcohol) Sex and Gender Information Value Date Recorded Sex Assigned at Not on file Gender Identity Not on file Sexual Orientation Not on file Obstetrics History Plan of Treatment Health Maintenance Due Date Last Done Comments Pneumococcal Vaccine: Pediat rics (0 to 5 Years) and At-Risk Patients (6 to 64 Years) (1 of 2 - PCV) 1997 Hepatitis B Vaccines (1 of 3 - 19+ 3-dose series) 2010 Cervical Cancer Screening: P ap Smear 01/02/2012 Depression Screening 05/27/2022 HIV Screening 05/27/2022 Hepatitis C Screening 05/27/2022 Social Influencers of Health Screening 05/27/2022 COVID-19 Vaccine (1 - 2024-2 5 season) 2024 Influenza Vaccine (#1) 2024 DTaP,Tdap,and Td Vaccines (2 - Td or Tdap) 01/17/2025 01/17/2015 HIB Vaccines Aged Out No longer eligi ble based on patient's age to complete this topic HPV Vaccines Aged Out No longer eligi ble based on patient's age to complete this topic Hepatitis A Vaccines Aged Out No long er eligible based on patient's age to complete this topic IPV Vaccines Aged Out No longer eligi ble based on patient's age to complete this topic MMR Vaccines Aged Out No longer eligi ble based on patient's age to complete this topic Meningococcal ACWY Vaccine Aged Out N o longer eligible based on patient's age to complete this topic RSV Immunization Patients Un arnold 20 months Aged Out No longer eligible b ased on patient's age to complete this topic Varicella Vaccines Aged Out No longer eligible based on patient's age to complete this topic Care Teams Support Services Manager Relationship Specialty Start Date End Date Lukasz Mansfield MD [address] [place] [address] PCP - General Internal Medicine 02/10/14
[2024-07-26] MEDS: Lactated Ringers 1,000 ML 999 ML IV (08:25)
[2024-07-26] MEDS: Aprepitant 32 MG/4.4 ML VIAL IVPUSH (08:31)
[2024-07-26 09:14] LABS: UPreg QC Valid YES; Urine Pregnancy NEGATIVE (NEGATIVE)
--- NOTE | 2024-07-26 10:11 | P.BOP_ITS ---
Brief Operative Note Date of Service: 07/26/24 Pre-op diagnosis: Morbid obesity with comorbidities (see below) Post-op diagnosis: same Procedure: INITIAL PATIENT BMI ON PRESENTATION AT OUR OFFICE: 42.1 kg/m2 LAST BMI BEFORE SURGERY: 39.8 kg/m2 COMORBIDITIES: GERD, liver steatosis, liver fibrosis ?The patient presented to the Weight Management Program with significant obesity that was negatively impacting the patient's comorbidities as listed above.? The program is a phased program with a special focus on preoperative medical weight management to promote substantial weight loss and prepare the patients for the second phase of the program: bariatric surgery. The patient participated in an intensive weekly lifestyle ?intervention and exercise program during which the patient ?has lost between the initial office visit and the last preoperative visit 11lbs, or 4% of initial actual body weight. It was deemed appropriate for the patient to now have bariatric surgery. In light of the current Covid-19 pandemic and the well documented strong association of obesity and increased risk of worse outcomes if infected with Covid-19 (REFERENCES: https://pubmed.ncbi.nlm.nih.gov/66518141/ ,? https://pubmed.n i.nlm.nih.gov/18959577/ ), any delay in undergoing bariatric surgery may lead to the patient's worsening health condition and increased?risk of more severe Covid-19 disease if infected. In addition a recent?study from [facility] published in [employer] on 06/24/2021 ([email or web address]) found that, among patients with obesity, substantial weight loss achieved with surgery was associated with improved outcomes of COVID-19 infection. The findings suggest that obesity can be a modifiable risk factor for the severity of COVID-19 infection. In addition, the patient met the BMI-criteria for bariatric surgery based on the BMI on initial presentation. The patient should not be penalized for achieving such weight loss because ?it is not sustainable long-term without surgical intervention and it was achieved in preparation for bariatric surgery ?under my direction and based on my published research (fi [email or web address]).[email or web address] and? https://www.soard.org/article/[email or web address](63)03779-X/pdf ) ?that a 10% preoperative weight loss improves long-term weight loss after surgery and reduces perioperative complications.? Insurance carriers such as [facility] have endorsed my recommendations ?and have included in their policies criteria to include a 10% preoperative weight loss requirement. PROCEDURE: Esophago-gastroscopy, laparoscopic sleeve gastrectomy and laparoscopic gastropexy INDICATIONS: This is a 34 year-old female who was electively scheduled for laparoscopic, possibly open sleeve gastrectomy. The risks and complications of the procedure were discussed with the patient in advance, particularly the possibility of ; pulmonary embolism; staple line leak; bleeding; GERD; cardiac, pulmonary, or renal complications; as well as long-term problems such as insufficient weight loss, vitamin deficiency, strictures, or ulcers. The patient understood all the risks, and was in agreement to proceed with surgery. DESCRIPTION OF PROCEDURE: After informed consent was obtained from the patient, the patient was given preoperative antibiotics, and was transferred to the operating room. After successful induction of general anesthesia, pneumatic compression devices were placed on both lower extremities. An upper endoscopy was performed next. The oropharynx and esophagus appeared to be within normal limits. There was no significant diaphragmatic hernia present. The stomach was entered. Then after all fluid and air were suctioned and the stomach was fully decompressed, the scope was withdrawn and secured in the mid esophagus. The patient was then prepped and draped in the usual sterile manner, and abdominal access was established at the right upper quadrant with the Parish technique. A 12 mm blunt port was inserted, and the abdomen was insufflated with CO2 to a pressure of 15 mmHg. Under direct visualization, additional ports were placed, specifically two 5 mm Versi-step ports to the left upper quadrant, and a 5 mm Versi-Step port to the right upper quadrant. 1% lidocaine plain was used to infiltrate all port sites as well as all fascia defects. Following that, the patient was placed in a steep reverse Trendelenburg position. An additional 5 mm port was placed to the right flank for the Mediflex retractor that was used to retract the left lobe of the liver. The gastro-esophageal fat pad was opened with the ultrasonic device (Thyoungerbeat, Olympus) and the anterior esophagus and hiatus were exposed. The angle of His was opened with the ultrasonic device the fundus of the stomach from any diaphragmatic and splenic attachments. I then opened the gastrocolic ligament between the transverse colon and the greater curvature of the stomach with the ultrasonic device to enter the lesser sac and facilitate the ligation of the short gastric vessels. I started at a mid-point along the greater curvature and using the Thunderbeat, all short gastric vessels were divided all the way to the angle of His until the left colt was completely dissected at its entirety. I then divided the gastro-colic ligament distally to a distance of about 3-4 cm proximal to the pylorus.? The stomach was then divided transversely with two Endo TUSHAR-45 purple and three TUSHAR-60 articulating purple loads using the [employer] stapler and loads. Every effort was made that the gastric sleeve had a tubular shape and an even caliber throughout. Once the sleeve resection was completed, the staple line of the gastric sleeve was reinforced with Hemoclips. The resected stomach was retrieved without difficulty from the Parish port. A gastropexy was then performed in order to prevent postoperative GERD and partial gastric volvulus. Several interrupted 2.0 Surgidac sutures were placed between the sleeve's staple line and the previously divided greater omentum and gastro-colic ligament using the Endo-Stitch device. ?An upper endoscopy was performed. There was no narrowing at the GE junction. The scope was easily advanced all the way to the pylorus which was clearly visualized. There was no narrowing anywhere and the sleeve's caliber was even throughout. The sleeve's staple line was inspected and there was no evidence of ischemia, bleeding or dehiscence. At that point the gastroscope was withdrawn from the patient?s mouth while we were decompressing the bowel and the stomach from any remaining air. I looked into the lesser sac to see how the sleeve was situating and it was situating well. There was no bleeding from the staple line, spleen, or short gastric vessels. The Mediflex retractor was removed, and the undersurface of the liver was inspected and there was no bleeding. The patient was placed in supine position. I closed the fascial defect of the 12 mm port site with a figure of eight #1 Polysorb suture. Then 30cc Ropivacaine plain with 10 mg of Dexamethasone were used to infiltrate the fascial closure as well as all skin incisions. At this point, the abdomen was deflated, all ports were removed under direct vision, and no bleeding was noted from any of the port sites. The skin incisions were irrigated with saline and were closed with 4-0 absorbable monofilament sutures. Steri-Strips and OpSites were used to cover all incisions. The patient was extubated and was transferred in stable condition to the recovery room for further care. I was present and performed all salcedo parts of the procedure. Ms. Rome was the tiler's assistant. There were no residents to assist with this case. Johnny Perez MD, PhD, FACS Surgeon: Barrie Perez MD Anesthesia: GETA, local and other (TAP block) Was an Cloud Software Engineer used for this Procedure?: No Cloud Software Engineer: Karen Rome Estimated blood loss (mL): 10 IV fluids (mL): 2,100 Urine output (mL): 0 (No Barrios to record output) Pathology: other (1) Stomach, 2) Gastro-esophageal fat pad) Condition: stable Disposition: PACU
--- NOTE | 2024-07-26 10:11 | MHC.SHP ---
Pre-Procedural Eval Section A - 24 Hr Update-Section A only Date of Service: 07/26/24 The patient is an INPATIENT: Yes The patient has been examined within 24 hours of the surgical procedure. The History & Physical has been completed within 30 days and I have reviewed it.: No Section B - Complete if H&P > 30 days Chief Complaint: obesity Relevant Family History (Specify if Yes): No Relevant Social History: None Present Medications: None Medical History: No relevant PMH History of Previous Operations: No relevant previous surgery Allergies: Allergies Allergy/AdvReac Type Severity Reaction Status Date / Time amoxicillin Allergy Unknown nausea and Verified 07/26/24 08:26 vomiting clarithromycin Allergy Hives Verified 07/26/24 08:26 Penicillins AdvReac Intermediate Vomiting Verified 07/26/24 08:26 Review of Systems Sugical H&P ROS: Negative: Constitution, Cardiovascular, Respiratory, Neurological, Psychiatric, Hem-Onc, Allergic/Immunologic, Gastrointestinal, Genitourinary, Musculoskeletal, Integumentary, Endocrine and Eyes/Ears/Nose/Throat Exam Surgical H&P Exam: Normal: HEENT, Normal: Heart, Normal: Lungs, Normal: Extremities, Normal: Abdomen, Normal: Skin and Normal: Neurological Plan Diagnosis/Plan: Unchanged I have reviewed the history and physical and performed a pertinent physical examination on my patient. No changes have occurred unless specified. Time Spent With Patient Time: Total time managing care of this patient today ____ minutes.
--- NOTE | 2024-07-26 10:14 | P.PNGS_ITS ---
Subjective Subjective Date of Service: 07/27/24 Interval history: Feels well. Mild incisional pain. She is tolerating phase 1 bariatric diet Physical Exam 2 Vital Signs: Vital Signs: Last Vital Signs Temp 98.1 F 07/26/24 08:14 Pulse 85 07/26/24 08:14 Resp 14 07/26/24 08:14 BP 120/81 07/26/24 08:14 Pulse Ox 95 07/26/24 08:14 O2 Del Method Room Air 07/26/24 08:14 BMI result Body Mass Index 38.8 GI: Inspection: Yes normal to inspection, Yes incision (clean, dry and intact) and Yes obesity Palpation (GI): Soft to palpation Extrem: Right lower extremity: normal to inspection (no calf tenderness) L eft lower extremity: normal to inspection (no calf tenderness) Objective Data Active Medications Lactated Ringer's (Lr) 1,000 mls @ 100 mls/hr IVCONT .Q10H AR Ciprofloxacin (Cipro) 400 mg in 200 mls @ 200 mls/hr IV ONCE ONE Stop: 07/26/24 11:06 Labs 07/27/24 05:37 07/27/24 05:37 Labs: Laboratory Results - last 24 hr 07/26/24 09:00 Urine Test NEGATIVE Procedures Date of Service Date of Service: 07/27/24 Progress Note: A&P Assessment and plan (1) Obesity: Status: Acute Assessment and Plan: s/p laparoscopic sleeve gastrectomy and gastropexy Doing well Will check am labs and if OK the patient will be discharged home (2) Steatosis, liver: Status: Acute (3) Liver fibrosis: Status: Acute (4) S/P laparoscopic sleeve gastrectomy: Status: Acute Time Spent With Patient Time: Total time managing care of this patient today ____ minutes. Quality Stroke Does the patient have a stroke diagnosis?: No VTE Prior VTE?: No VTE Risk Level:: Surgical - moderate VTE Device Contraindication: N/A - Device Ordered VTE Drug Contraindication: Treatment Not Indicated
[2024-07-26] MEDS: Lactated Ringers 1,000 ML 100 ML IVCONT ×3 (10:25→23:50)
[2024-07-26] MEDS: Ciprofloxacin Lactate/D5W 400 MG/200 ML PIGGYBACK 200 MG IV (10:55)
--- NOTE | 2024-07-26 11:57 | PHA.MEDREC ---
Pharmacy Consult ? Medication Reconciliation Pharmacy has reviewed the medication reconciliation completed by nursing, all claims matched.
[2024-07-26] MEDS: Acetaminophen 1,000 MG/100 ML PIGGYBACK 400 MG IV (12:00)
--- NOTE | 2024-07-26 13:10 | PM.DS ---
DS: Providers Provider Date of Service: 07/27/24 Date of admission: 07/26/24 07:53 Date of discharge: 07/27/24 Primary care physician: Phil Law MD DS: Diagnosis Discharge Diagnosis (1) Obesity: Status: Acute (2) Steatosis, liver: Status: Acute (3) Liver fibrosis: Status: Acute (4) S/P laparoscopic sleeve gastrectomy: Status: Acute DS: Summary Hospital Course Hospital Course: ADMITTING DIAGNOSIS: obesity,?GERD, liver fibrosis/steatosis, anemia ? DISCHARGE DIAGNOSIS: same, s/p laparoscopic sleeve gastrectomy and gastropexy ? PAST SURGICAL HISTORY:?tonsillectomy ? PROCEDURE: upper endoscopy, laparoscopic sleeve gastrectomy and gastropexy ? DISCHARGE SUMMARY: ? History of Present Illness: ? The patient is a? 34? year-old woman with a BMI of? 38.8 ? kg/m2 and associated co-morbidities as described above. The patient had extensive work-up, lost?14.2 lbs preoperatively and was electively scheduled for laparoscopic, possible open sleeve gastrectomy and gastropexy. Risks and complications of the surgery were discussed with the patient in advance, particularly the possibility of , pulmonary embolism, anastomotic leak, bleeding, bowel injury, GERD, cardiac, renal or pulmonary complications. The patient understood all the risks and was in agreement with the surgical plan. ? Hospital Course: ? The patient underwent an uneventful laparoscopic sleeve gastrectomy with gastropexy on the day of admission. Postoperatively, the patient was transferred to the surgical floor. The patient received IV Acetaminophen and IV dilaudid for pain control. Patient was started on bariatric phase 1 diet POD #0. On postoperative day one, the patient was feeling well without nausea, vomiting, fevers, or tachycardia. The patient had some mild incisional pain and the abdomen was soft.? ? On the morning of postoperative day one, the patient was continued on 1 ounce of water or ice every half hour. During the day, the patient did fairly well, having some incisional pain, but able to ambulate adequately and to tolerate liquids well. ? Since the patient is doing well, we decided that the patient was ready to be discharged. The patient was given instructions to follow-up with me next week and to call my office for any fever over 101, persistent abdominal pain, nausea, vomiting, GERD, symptoms of DVT such as calf tenderness, or leg swelling, or pulmonary embolism such as chest pain or shortness of breath.? The patient was also instructed to drink 40-60 ounces of liquids per day using the 1-ounce cups. The patient had been given prescriptions for Tylenol for pain, Zofran prn for nausea, and pantoprazole and carafate previously. The patient was encouraged to ambulate and use the incentive spirometer. The patient was allowed to shower, but no baths, and encouraged to stay active at home. All of these instructions were given to the patient personally. All questions were answered and the patient understood all instructions, the instructions were also given to the patient in print. Time Attestation Discharge Coordination Time (in mins): 30 Quality: Safe Use of Opioids Does Pt have an Active Cancer Diagnosis on the Problem List?: No Quality: Stroke Does the patient have a stroke diagnosis?: No Physical Exam Vital Signs: Vital Signs: Last Vital Signs Temp 99 F 07/26/24 13:00 Pulse 90 07/26/24 13:05 Resp 16 07/26/24 13:05 BP 141/84 H 07/26/24 13:05 Pulse Ox 100 07/26/24 13:05 O2 Del Method Simple Mask 07/26/24 13:05 O2 Flow Rate 6 07/26/24 13:05 BMI result Body Mass Index 38.8 DS: Data Data Completed and Pending Pending studies at discharge: Pending at discharge 07/26/24 12:09 Surgical [PTH] Routine Labs on day of discharge: Laboratory Results - last 24 hr 07/26/24 09:00 Urine Test NEGATIVE Discharge Plan Discharge Anticipated Discharge Date/Time: 07/27/24 10:00 Patient Disposition: Home, Self-Care Discharge Diagnosis: s/p laparoscopic sleeve gastrectomy with gastropexy Referrals: Phil Law MD [Primary Care Provider] - 1 Week Discharge Medications: Continued ondansetron HCl 4 mg tablet 4 mg PO Q6H PRN (Reason: nausea and vomiting) Qty: 30 0RF pantoprazole 40 mg tablet,delayed release (DR/EC) 40 mg PO DAILY@0630 sucralfate 100 mg/mL suspension 10 ml PO BID Qty: 600 2RF Discontinued multivitamin Tablet 1 tab PO DAILY polyethylene glycol 3350 17 gram/dose powder 17 g PO DAILY Qty: 238 0RF Rx Instructions: Mix each measuring cup with 8oz of water, Crystal light, or Gatorade zero, or Propel and do 7 measuring cups on 07/24/24 and another 7 measuring cups on 07/25/24 Discharge Orders: Discharge Order (Routine); Ordered 07/27/24 Ordered By: Barrie Perez Activity on Discharge: No heavy lifting Stand Alone Forms: Patient Portal Discharge page Print Language: Citizen Of [place] Care Plan Goals: weight loss Health Concerns: obesity Plan of Treatment: No tub baths, sex or returning to work until discussed at first post op appointment. No alcohol, tobacco or illegal drug use. Continue to use incentive spirometer hourly while awake. Walk in home for 5- 10 minutes every 2 hours during the first week. Wear abdominal binder with activity. Follow all meal plan instructions from your bariatric surgeon. Review bariatric handbook and call with any questions. Discharge Instructions 1. Please call your doctor or come back to the emergency room should any new symptoms arise. 2. Activity: abstain from alcohol,? limited stair climbing, no bending, no driving, no exercise, no illicit substances, no lifting, no sex, no tub bath, no work. 4. Diet: follow your bariatric surgeons recommendations for advancing diet. 5. Dressing Change/Wound Care: Your incisions are covered with waterproof dressings. You can shower with these and pat dry. Do not rub over dressings or incisions. If the area is tender, you may apply an ice pack for short intervals (no more than 20 minutes on, followed by at least 20 minutes off). Do not apply heat. Do not use creams, lotions, or topical antibiotics unless instructed to do so by your surgeon. 6. Call your doctor if: - Your temperature exceeds 101.5 F - You experience excessive pain or swelling - You have an unexpected reaction to medication - You have excessive bleeding - You experience continued vomiting/nausea - Your incision begins to separate - Your incision shows signs of infection such as increased redness, swelling, excessive pain, heat, or drainage (light blood or clear fluid is normal) General instructions: No lifting greater than 10 lbs for the next 6 weeks[address] driving within 24 hours of taking narcotic pain medications. If you do not move your bowels in the next 2 days, please take milk of magnesia over the counter. Please follow the post op diet and do not advance your diet until you are seen in the office in about 2 weeks. Please walk around your home every hour or two to prevent blood clots from forming in your legs. You do not need to wake from sleeping to walk. Please sleep in a bed or couch to prevent kinking at the hips and knees. Please take your incentive spirometer (your lung content strategist) home with you and use it for the next few days to prevent pneumonias. You may shower, no hot tubs, baths or swimming pools. Please call the office with any questions or concerns such as increasing abdominal pain, fever, chills, shortness of breath, chest pain, leg pain or swelling, or redness or drainage from your incisions. Please make sure you are consuming 40-60 ounces of total fluids per day. Avoid all carbonation. Do not hesitate to contact the office with any questions at . The patient's medical history has been reviewed and they are considered low risk for post op DVT and therefore DVT prophylaxis is not considered necessary. Travel after surgery was reviewed. The patient has not disclosed any travel plans during the first 30 days after surgery and they have been advised that within the first 30 days after surgery any bus, plane, train or car travel over 2 hours in duration is contraindicated due to the possibility of developing blood clots from immobility. Any travel, needs to include periods of ambulation of 10 minutes in duration every 2 hours.? The patient was instructed to discuss any plans for travel during this period with their bariatric surgeon. Assessment: s/p laparoscopic sleeve gastrectomy with gastropexy Discharge Date/Time: 07/27/24 08:48
[2024-07-26] MEDS: ondansetron HCL 4 MG/2 ML VIAL IVPUSH (13:35)
[2024-07-26 13:42] LABS: Hematocrit 39.2 % (37.0-47.0); Hemoglobin 12.5 g/dl (12.0-16.0)
[2024-07-26 13:59] LABS: Anion Gap 15 (12-20); Blood Urea Nitrogen 8 mg/dL (9-16); Calcium 8.9 mg/dL (8.4-10.2); Carbon Dioxide 20 mmol/L (22-29); Chloride 108 mmol/L (96-108); Creatinine Clr Calc Pharmacy 143.3; Estimated Glomerular Filt Rate > 60; Glucose Random 122 mg/dL (60-115); Potassium 4.2 mmol/L (3.3-5.1); Sodium 139 mmol/L (135-145)
[2024-07-26] MEDS: fentaNYL citrate/PF 100 MCG/2 ML VIAL 25 MCG IVPUSH (14:50)
[2024-07-26] MEDS: 0.9 % Sodium Chloride Flush 3 ML SYRINGE IVFLUSH ×2 (15:44→19:37)
[2024-07-26] MEDS: Metoclopramide HCl 10 MG/2 ML VIAL IVPUSH (16:19)
[2024-07-26] MEDS: HYDROmorphone HCl 0.5 MG/0.5 ML SYRINGE 0.25 MG IVPUSH (16:19)
[2024-07-26] MEDS: Acetaminophen 1,000 MG/100 ML PIGGYBACK 16.7 MG IV ×2 (17:04→22:33)
[2024-07-26] MEDS: Famotidine/PF 20 MG/2 ML VIAL IVPUSH (19:37)
[2024-07-27 03:48] VITALS: BP 139/79; PULSE 74; RESP 18; TEMP 37.1; O2SAT 96
[2024-07-27] MEDS: Acetaminophen 1,000 MG/100 ML PIGGYBACK 16.7 MG IV (04:26)
[2024-07-27 06:42] LABS: MANUAL DIFF FLAG NO
[2024-07-27 06:50] LABS: Basophils Percent Auto 0.1 % (0-2); Hematocrit 37.5 % (37.0-47.0); Hemoglobin 11.8 g/dl (12.0-16.0); Imm Gran Abs Auto 0.07 X10*3/uL (0.00-0.03); Imm Gran Pct Auto 0.5 % (0.0-0.4); Lymphocytes Absolute Auto 1.7 X10*3/uL (1.2-4.9); Lymphocytes Percent Auto 13.2 % (20-40); Mean Corpuscular HGB Conc 31.5 g/dl (31.0-35.0); Mean Corpuscular Hemoglobin 24.6 pg (27.0-33.0); Mean Corpuscular Volume 78.3 fL (80.0-98.0); Mean Platelet Volume 10.8 fL (9.4-12.3); Monocytes Absolute Auto 0.5 X10*3/uL (0.1-1.2); Monocytes Percent Auto 3.4 % (2-11); Neutrophils Percent Auto 82.8 % (45-73); Platelet Count 258 X10*3/uL (160-400); Red Blood Count 4.79 X10*6/uL (4.20-5.50); Red Cell Distribution Width 15.3 % (11.0-16.0); White Blood Count 13.2 X10*3/uL (4.8-10.8)
--- NOTE | 2024-07-27 06:52 | PM.PNGS ---
Subjective Subjective Date of Service: 07/27/24 Interval history: Patient reports that she is tired due to pain and bloating keeping her up at night. She required a dose of dilaudid which she says made her drowsy but did not fully eliminate her pain. She is ambulating frequently which helps with the bloating. Patient had some difficulty tolerating bariatric diet, but was able to take 30mL x 7times last evening. Patient endorses some flatus and belching. She is able to urinate with difficulty and denies any nausea, vomiting, dyspnea. She is able to use the IS frequently and produces some mild sputum after using; she denies cough. Physical Exam Vital Signs: Vital Signs: Last Vital Signs Temp 98.7 F 07/27/24 03:48 Pulse 74 07/27/24 03:48 Resp 18 07/27/24 03:48 BP 139/79 07/27/24 03:48 Pulse Ox 96 07/27/24 03:48 O2 Del Method Room Air 07/27/24 03:48 O2 Flow Rate 2.5 07/26/24 13:45 BMI result Body Mass Index 40.9 Const: General: comfortable, no acute distress, alert and awake Nutritional Appearance: obese Orientation/consciousness: patient oriented x3 Resp: Effort & Inspection: normal respiratory effort Auscultation: clear to auscultation bilaterally, no crackles, no rhonchi and no wheezes Cardio: Rate: regular rate Rhythm: regular rhythm Heart sounds: S1 normal heart sound present, S2 normal heart sound present, no gallops, no murmurs and no rubs GI: Other: Blood soaking through midline incision dressing. Otherwise clean dressings. Abdomen is soft. Active bowel sounds. Mild tenderness in upper quadrants, most over epigastric incision. No rigidity or guarding. Neuro: General: patient oriented x3 Motor exam (neuro): 5/5 motor strength present throughout Psych: Other: Good mood. euthmyic. Objective Data Active Medications Famotidine (Famotidine/Pf 20 Mg/2 Ml Vial) 20 mg IVPUSH BID AR Last Admin: 07/26/24 19:37 Dose: 20 mg Documented By: LONNIEQC Hydromorphone HCl (Hydromorphone Hcl 0.5 Mg/0.5 Ml Syringe) 0.25 mg IVPUSH Q4H PRN; Protocol PRN Reason: Pain, Severe (Pain Scale 7-10) Last Admin: 07/26/24 16:19 Dose: 0.25 mg Documented By: STAR Lactated Ringer's (Lr) 1,000 mls @ 100 mls/hr IVCONT .Q10H [facility] Last Admin: 07/26/24 23:50 Dose: 100 mls/hr Documented By: KATELIN Acetaminophen (Ofirmev) 1,000 mg in 100 mls @ 16.7 mls/hr IV .Q6H [facility] Last Admin: 07/27/24 04:26 Dose: 16.7 mls/hr Documented By: KATELIN Metoclopramide HCl (Metoclopramide Hcl 10 Mg/2 Ml Vial) 10 mg IVPUSH Q6H PRN PRN Reason: Nausea Last Admin: 07/26/24 16:19 Dose: 10 mg Documented By: STAR Ondansetron HCl (Ondansetron Hcl 4 Mg/2 Ml Vial) 4 mg IVPUSH Q8H PRN PRN Reason: Nausea Sodium Chloride (0.9 % Sodium Chloride Flush 3 Ml Syringe) 3 ml IVFLUSH QSHIFT [facility] Last Admin: 07/26/24 19:37 Dose: 3 ml Documented By: KATELIN Labs 07/27/24 05:37 07/27/24 05:37 Labs: Laboratory Results - last 24 hr 07/26/24 07/26/24 07/27/24 09:00 13:36 05:37 MCV 78.3 L MCH 24.6 L MCHC 31.5 RDW 15.3 Plt Count 258 D MPV 10.8 Immature Gran % (Auto) 0.5 H Neut % (Auto) 82.8 H Lymph % (Auto) 13.2 L [place] % (Auto) 3.4 Eos % (Auto) 0.0 Baso % (Auto) 0.1 Lymph # (Auto) 1.7 [place] # (Auto) 0.5 Eos # (Auto) 0.0 Baso # (Auto) 0.0 Abs Immat Gran (auto) 0.07 H Absolute Neuts (auto) 11.0 H Absolute Nucleated RBC 0.000 Nucleated RBC % (auto) 0.0 Anion Gap 15 Estim Creat Clear Calc 143.3 Estimated GFR > 60 Random Glucose 122 H Calcium 8.9 D Urine Test NEGATIVE Procedures Date of Service Date of Service: 07/27/24 Progress Note: A&P Assessment and plan Plan (1) Obesity: Status: Acute Assessment and Plan: Patient is a 34 yo female with history of obesity, liver steatosis and GERD, POD 1 s/p laparoscopic sleeve gastrectomy with gastropexy. Patient tolerating bariatric diet, moderate bloating/pressure after taking sips of water Endorses moderate pain, required dilaudid once. Patient has hx of GERD on pantoprazole. AM labs returned with elevated white count of 13.2 with left shift (82% neutrophils); she has no signs of atelectasis, pneumonia or UTI. Heart rate has been stable and patient is afebrile on tylenol. DDx includes post-op catecholamine surge, leak, URI. Can consider CXR, monitoring of vital signs. Patient has Hemoglobin of 11.8 decreased from 12.4 at preop. Continue to encourage ambulation/OOB and bariatric diet as tolerated. (2) Steatosis, liver: Status: Acute (3) Liver fibrosis: Status: Acute (4) S/P laparoscopic sleeve gastrectomy: Status: Acute Time Spent With Patient Time: Total time managing care of this patient today ____ minutes. Quality Stroke Does the patient have a stroke diagnosis?: No VTE Prior VTE?: No VTE Risk Level:: Surgical - moderate VTE Device Contraindication: N/A - Device Ordered VTE Drug Contraindication: Treatment Not Indicated
[2024-07-27 07:00] LABS: Anion Gap 14 (12-20); Blood Urea Nitrogen 6 mg/dL (9-16); Calcium 9.2 mg/dL (8.4-10.2); Carbon Dioxide 22 mmol/L (22-29); Chloride 104 mmol/L (96-108); Creatinine Clr Calc Pharmacy 172.2; Estimated Glomerular Filt Rate > 60; Glucose Random 104 mg/dL (60-115); Potassium 4.3 mmol/L (3.3-5.1); Sodium 136 mmol/L (135-145)
[2024-07-27 07:53] VITALS: BP 139/83; PULSE 76; RESP 18; TEMP 37; O2SAT 97
--- NOTE | 2024-07-27 08:37 | HO.POSTANES ---
Post Anesthesia Evaluation Post Anesthesia Evaluation Date of Service: 07/27/24 Vital Signs: Vital Signs Temp Pulse Resp BP Pulse Ox O2 Del Method 07/27/24 07:53 98.6 F 76 18 139/83 97 Room Air 07/27/24 03:48 98.7 F 74 18 139/79 96 Room Air 07/26/24 23:29 98.5 F 80 18 134/74 95 Room Air Anesthesia: General Endotracheal-GETA Mental Status: Awake Pain Control: Satisfactory Nausea/Vomiting: None Hydration: Adequate Anesthesia-Related Issues: No Anes. Related Issues
--- NOTE | 2024-07-27 08:38 | MHC.CM.PN ---
CM MET WITH PT IN ROOM. PT LIVES ALONE AND IS INDEPENDENT, EMPLOYED F/T. DECLINES COMPLETING A HCP AT THIS TIME, ANXIOUS TO GO HOME. PCP DR. CASON DP: PT HAS BEEN MEDICALLY CLEARED FOR DC HOME, NO SERVICES. PT HAS OWN RIDE HOME.
== END 2024-07-27 08:48 | disposition home or self-care (01) | DRG 403 ==
LOC: HO.SSSA 13:09 → HO.S3 14:57
PROVIDERS: Nurse Practitioner; Physician Assistant Surgical; Admitting Provider Surgery; PCP Internal Medicine; Visit Provider Surgery
PROC: 0DB64Z3 Excision of Stomach, Percutaneous Endoscopic Approach, Vertical (ICD-10-PCS; CPT 43845; principal; 2024-07-26 10:20)
DX: E66.01 Morbid (severe) obesity due to excess calories (principal); K74.00 Hepatic fibrosis, unspecified; K21.9 Gastro-esophageal reflux disease without esophagitis; Z68.39 Body mass index [BMI] 39.0-39.9, adult; Z71.3 Dietary counseling and surveillance; K76.0 Fatty (change of) liver, not elsewhere classified; Z79.899 Other long term (current) drug therapy
CPT/HCPCS: 36415; 80048; 80053; 80061; 81025; 83036; 83525; 84443; 85014; 85018; 85025; 85610; 85730; 86140; 86850; 86900; 86901; 88304; 88305; 88307; 88342; A4649; C9145; J0131; J0744; J1100; J1171; J2003; J2250; J2371; J2405; J2704; J2765; J2795; J3010; J7120

== ENCOUNTER → 2024-07-26 07:53 | Outpatient (BNV) | payer OTHER, SELFPAY | PROVIDERS: Admitting Provider Surgery; PCP Internal Medicine; Visit Provider Surgery | DX: E66.9 Obesity, unspecified (principal); K76.0 Fatty (change of) liver, not elsewhere classified; K74.00 Hepatic fibrosis, unspecified; Z98.84 Bariatric surgery status | CPT/HCPCS: 43659; 43775; 99024; 99499 ==

== ENCOUNTER 2024-08-24 09:19 | Outpatient (AMB) | payer OTHER, SELFPAY ==
--- NOTE | 2024-08-24 09:04 | MHC.OFFVISWM ---
VS Expanded 08/24/24 09:21 Height 5 ft 8 in Weight 247 lb 2 oz BMI 37.6 Intake Visit Reasons: (TV) PO LSG 07/26/24 Allergies amoxicillin Allergy (Unknown, Verified 08/01/24 14:38) nausea and vomiting clarithromycin Allergy (Verified 08/01/24 14:38) Hives Penicillins Adverse Reaction (Intermediate, Verified 08/01/24 14:38) Vomiting Medication List - Last Reconciled 08/24/24 by BEV Delgado ondansetron HCl 4 mg PO Q6H PRN pantoprazole 40 mg PO DAILY@0630 sucralfate 10 mL PO BID HPI Comments Details: This?is a?34?yo female who is s/p LSG 07/26/2024. Presents for 4 week post op visit. Weight at last visit on 08/01/2024 was 254.6 pounds with a BMI of 38.7, weight today is 247.2 pounds, representing a 7.4 pound weight loss with a BMI today of 37.6.? No complaints of nausea, emesis, abdominal pain or reflux, or constipation. Pt notes a lot of difficulties following the plan. Frustrated by her interactions with surgeon. Wants to use [employer] protein shakes. 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 Feels discouraged, considering stopping communication. Present meal plan includes: 3 [employer] shakes 1 protein bar Exercise routine includes: likes elliptiical or Arc link trainer, has a walking pad at home but reports she has limited time right now and feels exhausted [facility] Medical History (Updated 08/04/24 @ 00:01 by Background Carlos) GERD (gastroesophageal reflux disease) Morbid obesity Surgical History (Updated 08/04/24 @ 00:01 by Background Carlos) S/P laparoscopic sleeve gastrectomy History of esophagogastroduodenoscopy (EGD) Hx of tonsillectomy Family History Maternal Aunt Breast cancer Social History Household Members: None Housing: Apartment Are you a primary healthcare educator to a significant other at home: No Do you presently have visiting nurse or other home services: No Alcohol intake: former Patient Tobacco Use Status: Never used Tobacco service: No Telehealth Telehealth Telehealth Platform: Telephone Location of provider rendering services: other Location of patient: address on file Patient Identification confirmed using: Name, : Yes Telehealth method: voice only Patient verbally consented to treatment: Yes Patient verbally consented to billing insurance company: Yes Patient informed of any privacy concerns related to visit: Yes Minutes spent on Phone/Video with Pt.: 20 Assessment & Plan Assessment & Plan (1) S/P laparoscopic sleeve gastrectomy: Code(s): Z98.84 - Bariatric surgery status Category: Surgical (2) Obesity: Code(s): E66.9 - Obesity, unspecified Category: Medical Plan Pt shares many frustrations with her postop course. She is doing fine from a surgical standpoint but would prefer to communicate with me. I discussed the potential risks of not following the plan exactly, including complications and less than expected weight loss. Discussed the importance of a consistent exercise routine. Pt agrees to try to resume more exercise this week. She wants to stop Orgain shakes and use [employer]. New plan of 2 [employer] 30g shakes per day, each over 3 hours, and 1 protein bar- Barebells (20g). Meal plan texted to pt. She will text me weekly. Try mixing courtney MVI capsule granules into shake. RTC 1 month. I spent a total of 30 minutes reviewing/updating records, examining the patient and counseling the patient on weight management as detailed above.
[2024-08-24 09:21] VITALS: BMI 37.6
--- OUTSIDE RECORDS SUMMARY | 2024-08-24 10:25 | XMS_ITS | Clinical Summary ---
Author Organization [facility] Address [address] [place] [address] Care Team Providers Care Ink Blender Name Role Phone Lukasz Mansfield MD Primary Care Provider [phone] Surgical History Surgery Date Site/Laterality Comments TONSILLECTOMY [...] drink = 0.6 oz pur e alcohol) Comments Unknown Sex and Gender Information Value Date Recorded Sex Assigned at Not on file Legal Sex Female 1:50 PM EST Gender Identity Not on file Sexual Orientation Not on file Obstetrics History Plan of Treatment Health Maintenance Due Date Last Done Comments Hepatitis B Vaccines (1 of 3 - 19+ 3-dose series) 2010 Pneumococcal Vaccine: Pediat rics (0 to 5 Years) and At-Risk Patients (6 to 64 Years) (1 of 2 - PCV) 2010 Cervical Cancer Screening: P ap Smear 01/02/2012 Depression Screening 05/27/2022 HIV Screening 05/27/2022 Hepatitis C Screening 05/27/2022 Social Influencers of Health Screening 05/27/2022 COVID-19 Vaccine (1 - 2023-2 5 season) 2024 Influenza Vaccine (#1) 2024 [...] patient's age to complete this topic Meningococcal B Vacine Aged Out No lo nger eligible based on patient's age to complete this topic RSV Immunization Patients Un arnold 20 months Aged Out No longer eligible b ased on patient's age to complete this topic Varicella Vaccines Aged Out No longer eligible based on patient's age to complete this topic Care Teams Ink Blender Relationship Specialty Start Date End Date Lukasz Mansfield MD [address] [place] [address] PCP - General Internal Medicine 02/10/14
== END 2024-08-24 09:30 | disposition home or self-care (01) ==
LOC: HO.HBS 09:19
PROVIDERS: PCP Internal Medicine; Visit Provider Physician Assistant Surgical
DX: E66.9 Obesity, unspecified (principal); Z98.84 Bariatric surgery status
CPT/HCPCS: 99024

== ENCOUNTER 2024-09-26 13:38 | Outpatient (AMB) | payer OTHER, SELFPAY ==
--- NOTE | 2024-09-26 13:29 | A.OFFVIS_ITS ---
VS Expanded 09/26/24 13:32 Height 5 ft 8 in Weight 235 lb BMI 35.7 Intake Visit Reasons: TELEPHONE PO LSG 07/26/24 Allergies amoxicillin Allergy (Unknown, Verified 08/01/24 14:38) nausea and vomiting clarithromycin Allergy (Verified 08/01/24 14:38) Hives Penicillins Adverse Reaction (Intermediate, Verified 08/01/24 14:38) Vomiting Medication List - Last Reconciled 09/26/24 by BEV Delgado pantoprazole 40 mg PO DAILY@0630 sucralfate 10 mL PO BID HPI Comments Details: This?is a?34?yo female who is s/p LSG 07/26/2024. Presents for 2 month post op visit. Weight at last visit on 08/24/2024 was 247.2 pounds with a BMI of 37.6, weight today is 235 pounds, representing a 12.2 pound weight loss with a BMI today of 35.7.? No complaints of nausea, emesis, abdominal pain or reflux, or constipation. Present meal plan includes: 2 [employer] 30g shakes per day, each over 3 hours, and 1 protein bar- Barebells (20g) has been incorporating yogurt, chicken, broccoli Exercise routine includes: likes elliptiical or Arc weight trainer, has a walking pad at home energy levels are better, although last week did not exercise at all due to heavy menstrual cycle walks at park 4 miles [facility] Medical History (Updated 08/04/24 @ 00:01 by Background Carlos) GERD (gastroesophageal reflux disease) Morbid obesity Surgical History (Updated 08/04/24 @ 00:01 by Background Carlos) S/P laparoscopic sleeve gastrectomy History of esophagogastroduodenoscopy (EGD) Hx of tonsillectomy Family History Maternal Aunt Breast cancer Social History Household Members: None Housing: Apartment Are you a primary patient care technician instructor to a significant other at home: No Do you presently have visiting nurse or other home services: No Alcohol intake: former Patient Tobacco Use Status: Never used Tobacco service: No Assessment & Plan Assessment & Plan (1) S/P laparoscopic sleeve gastrectomy: Code(s): Z98.84 - Bariatric surgery status Category: Surgical (2) Obesity: Code(s): E66.9 - Obesity, unspecified Category: Medical Plan Due to complete course of PPI and carafate this month. Discussed the importance of ensuring adequate protein intake mostly through supplements. I advised her that she should limit her solid food intake to one meal/day, continue to use shakes/bars for the remainder of the day to meet protein goal of 80-90g. No activity restrictions. RTC 1 month.
[2024-09-26 13:32] VITALS: BMI 35.7
--- OUTSIDE RECORDS SUMMARY | 2024-09-26 15:26 | XMS_ITS | Clinical Summary ---
Author Organization [facility] Address [address] [place] [address] Care Team Providers Care Senior Electronics Design Engineer Name Role Phone Lukasz Mansfield MD Primary Care Provider [phone] Surgical History Surgery Date Site/Laterality Comments TONSILLECTOMY [...] age to complete this topic Care Teams Senior Electronics Design Engineer Relationship Specialty Start Date End Date Lukasz Mansfield MD [address] [place] [address] PCP - General Internal Medicine 02/10/14
== END 2024-09-26 13:59 | disposition home or self-care (01) ==
LOC: HO.HBS 13:38
PROVIDERS: PCP Internal Medicine; Visit Provider Physician Assistant Surgical
DX: E66.9 Obesity, unspecified (principal); Z68.35 Body mass index [BMI] 35.0-35.9, adult; Z98.84 Bariatric surgery status
CPT/HCPCS: 99024

== ENCOUNTER → 2024-09-26 13:38 | Outpatient (BNVA) | payer OTHER, SELFPAY | PROVIDERS: PCP Internal Medicine; Visit Provider Physician Assistant Surgical ==

== ENCOUNTER 2024-10-31 12:21 | Outpatient (AMB) | payer OTHER, SELFPAY ==
--- NOTE | 2024-10-31 11:36 | MHC.OFFVISWM ---
VS Expanded 10/31/24 11:39 Height 5 ft 8 in Weight 227 lb BMI 34.5 Intake Visit Reasons: TELEPHONE PO LSG 07/26/24 Allergies amoxicillin Allergy (Unknown, Verified 08/01/24 14:38) nausea and vomiting clarithromycin Allergy (Verified 08/01/24 14:38) Hives Penicillins Adverse Reaction (Intermediate, Verified 08/01/24 14:38) Vomiting Medication List - Last Reconciled 10/31/24 by BEV Delgado No Known Home Meds HPI Comments Details: This?is a?34?yo female who is s/p LSG 07/26/2024. Presents for 3 month post op visit. Weight at last visit on 09/26/2024 was 235 pounds with a BMI of 35.7, weight today is 227 pounds, representing a 8 pound weight loss with a BMI today of 35.7.? No complaints of nausea, emesis, abdominal pain, or constipation. Had one episode of reflux that she required omeprazole for, unsure what she ate prior to that. Present meal plan includes: 2 Fairlife 30g shakes per day, each over 3 hours, and 1 protein bar- Barebells (20g) has been incorporating yogurt, chicken, broccoli but a lot of meats feel heavy Exercise routine includes: likes elliptiical or Arc salesforce trainer, has a walking pad at home went back to gym after it was closed for a while walks at park 4 miles [facility] Medical History (Updated 08/04/24 @ 00:01 by Background Carlos) GERD (gastroesophageal reflux disease) Morbid obesity Surgical History (Updated 08/04/24 @ 00:01 by Background Dajanice) S/P laparoscopic sleeve gastrectomy History of esophagogastroduodenoscopy (EGD) Hx of tonsillectomy Family History Maternal Aunt Breast cancer Social History Household Members: None Housing: Apartment Are you a primary interior plant caretaker to a significant other at home: No Do you presently have visiting nurse or other home services: No Alcohol intake: former Patient Tobacco Use Status: Never used Tobacco service: No Telehealth Telehealth Telehealth Platform: Telephone Location of provider rendering services: other Location of patient: address on file Patient Identification confirmed using: Name, : Yes Telehealth method: voice only Patient verbally consented to treatment: Yes Patient verbally consented to billing insurance company: Yes Patient informed of any privacy concerns related to visit: Yes Minutes spent on Phone/Video with Pt.: 16 Assessment & Plan Assessment & Plan (1) S/P laparoscopic sleeve gastrectomy: Code(s): Z98.84 - Bariatric surgery status Category: Surgical (2) Obesity: Code(s): E66.9 - Obesity, unspecified Category: Medical Plan Pt has been trying a lot of different foods but I cautioned her to avoid foods that cause pain/discomfort. Sent healthy foods list via text. She has liberalized her meal plan more than recommended at this point so I discussed that more weight loss would be achieved with stricter meal plan. Discussed reflux triggers and tracking what causes any further episodes. RTC 6w.
[2024-10-31 11:39] VITALS: BMI 34.5
--- OUTSIDE RECORDS SUMMARY | 2024-10-31 13:46 | XMS_ITS | Clinical Summary ---
Author Organization [facility] Address [address] [place] [address] Care Team Providers Care Pile Driver Name Role Phone Lukasz Mansfield MD Primary Care Provider [phone] Surgical History Surgery Date Site/Laterality Comments TONSILLECTOMY [...] Cervical Cancer Screening: P ap Smear 01/02/2012 COVID-19 Vaccine (2023-2 5 season) 2024 DTaP,Tdap,and Td Vaccines (2 - Td or Tdap) 01/17/2025 01/17/2015 Influenza Vaccine (Season Ended) 2025 HIB Vaccines Aged Out No longer eligi [...] age to complete this topic Meningococcal B Vaccine Aged Out No l onger eligible based on patient's age to complete this topic Pneumococcal Vaccine: Pediat rics (0 to 5 Years) and At-Risk Patients (6 to 64 Years) Aged Out No longer eligi ble based on patient's age to complete this topic RSV Immunization Patients Un arnold 20 months Aged Out No longer eligible b ased on patient's age to complete this topic Varicella Vaccines Aged Out No longer eligible based on patient's age to complete this topic Care Teams Pile Driver Relationship Specialty Start Date End Date Lukasz Mansfield MD [address] [place] [id number] PCP - General Internal Medicine 02/10/14
--- OUTSIDE RECORDS SUMMARY | 2024-10-31 13:46 | XMS_ITS | Encounter Summary ---
Author Organization [facility] Address [address] [place] [address] Care Team Providers Care Fiber Picker Name Role Phone Andreia Bernal Primary Care Provider Lukasz Marte MD Primary Care Provider Chirag Zabala MD Primary Care Provider Lukasz Garcia MD Primary Care Provider Alyssa marmolejo Encounter Details Date Type Department Care Team Description 04/19/2012 Release of Information Medical Records [address] [place] [address] Abstract, Provider Social History Tobacco Use Types [...] on filedocumented in this encounter Care Teams Fiber Picker Relationship Specialty Start Date End Date Andreia Bernal PCP - General Pediatrics 03/12/12 02/09/14 Lukasz Mansfield MD PCP - General Internal Medicine 02/10/14 08/18/16 Chirag Reilly MD PCP - General Internal Medicine 08/19/16 7 Lukasz Mansfield MD PCP - General Internal Medicine 08/26/16 documented as of this encounter
== END 2024-10-31 12:21 | disposition home or self-care (01) ==
LOC: HO.HBS 12:21
PROVIDERS: PCP Internal Medicine; Visit Provider Physician Assistant Surgical
DX: E66.9 Obesity, unspecified (principal); E66.811 Obesity, class 1; Z68.34 Body mass index [BMI] 34.0-34.9, adult; Z98.84 Bariatric surgery status
CPT/HCPCS: 98967

== ENCOUNTER → 2024-10-31 12:21 | Outpatient (BNVA) | payer OTHER, SELFPAY | PROVIDERS: PCP Internal Medicine; Visit Provider Physician Assistant Surgical | DX: E66.9 Obesity, unspecified (principal); Z98.84 Bariatric surgery status; Z68.34 Body mass index [BMI] 34.0-34.9, adult | CPT/HCPCS: 98967 ==

== ENCOUNTER 2024-12-26 09:13 | Outpatient (AMB) | payer OTHER, SELFPAY ==
--- NOTE | 2024-12-26 09:04 | A.OFFVIS_ITS ---
VS Expanded 12/26/24 09:10 Height 5 ft 8 in Weight 212 lb 8 oz BMI 32.3 Intake Visit Reasons: TELEPHONE PO LSG 07/26/24 Allergies amoxicillin Allergy (Unknown, Verified 08/01/24 14:38) nausea and vomiting clarithromycin Allergy (Verified 08/01/24 14:38) Hives Penicillins Adverse Reaction (Intermediate, Verified 08/01/24 14:38) Vomiting Medication List - Last Reconciled 12/26/24 by BEV Delgado No Known Home Meds HPI Comments Details: This?is a?34?yo F who is s/p LSG 07/26/2024. Presents for 5mo post op visit. Weight at last visit on 10/31/2024 was 227 pounds with a BMI of 34.5. Weight today is 212.8 pounds, representing a 14.2 pound weight loss with a BMI today of 32.3.? No complaints of nausea, emesis, abdominal pain, or constipation. Rare reflux, maybe once every 2 weeks, will take 1 omeprazole. 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, has a walking pad at home went back to gym after it was closed for a while walks at park 4 miles [facility] Medical History (Updated 08/04/24 @ 00:01 by Background Carlos) GERD (gastroesophageal reflux disease) Morbid obesity Surgical History (Updated 08/04/24 @ 00:01 by Background Carlos) S/P laparoscopic sleeve gastrectomy History of esophagogastroduodenoscopy (EGD) Hx of tonsillectomy Family History Maternal Aunt Breast cancer Social History Household Members: None Housing: Apartment Are you a primary cna caregiver to a significant other at home: No Do you presently have visiting nurse or other home services: No Alcohol intake: former Patient Tobacco Use Status: Never used Tobacco service: No Telehealth Telehealth Telehealth Platform: Telephone Location of provider rendering services: other Location of patient: address on file Patient Identification confirmed using: Name, : Yes Telehealth method: voice only Patient verbally consented to treatment: Yes Patient verbally consented to billing insurance company: Yes Patient informed of any privacy concerns related to visit: Yes Minutes spent on Phone/Video with Pt.: 14 Assessment & Plan Assessment & Plan (1) S/P laparoscopic sleeve gastrectomy: Code(s): Z98.84 - Bariatric surgery status Category: Medical (2) Obesity: Code(s): E66.9 - Obesity, unspecified Category: Medical Plan Pt to continue on above meal plan. I encouraged her to try to consume solid foods that did not cause her issues (softer protein options and cooked veg better), and be aware of reflux triggers. Labs ordered in anticipation of 6mo visit. RTC 6w. Orders: Orders TSH reflex Free T4 Today Z98.84 - Bariatric surgery status Ferritin Today Z98.84 - Bariatric surgery status Vitamin D 25-OH Total Today Z98.84 - Bariatric surgery status C Reactive Protein Today Z98.84 - Bariatric surgery status Vitamin B12 and Folate Today Z98.84 - Bariatric surgery status Zinc Today Z98.84 - Bariatric surgery status IRON PROFILE Today Z98.84 - Bariatric surgery status Lipid Panel Today Z98.84 - Bariatric surgery status Insulin Today Z98.84 - Bariatric surgery status Hemoglobin A1c Today Z98.84 - Bariatric surgery status Vitamin A Today Z98.84 - Bariatric surgery status Vitamin B1 Today Z98.84 - Bariatric surgery status Comprehensive Met. Panel Today Z98.84 - Bariatric surgery status Complete Blood Count Auto Diff Today Z98.84 - Bariatric surgery status
[2024-12-26 09:10] VITALS: BMI 32.3
--- OUTSIDE RECORDS SUMMARY | 2024-12-26 09:33 | XMS_ITS | Clinical Summary ---
Author Organization [facility] Address [address] [place] [address] Care Team Providers Care Filling Carrier Name Role Phone Lukasz Mansfield MD Primary Care Provider [phone] Surgical History Surgery Date Site/Laterality Comments TONSILLECTOMY [...] age to complete this topic Care Teams Filling Carrier Relationship Specialty Start Date End Date Lukasz Mansfield MD [address] [place] [id number] PCP - General Internal Medicine 02/10/14
== END 2024-12-26 09:32 | disposition home or self-care (01) ==
LOC: HO.HBS 09:13
PROVIDERS: Visit Provider Physician Assistant Surgical
DX: E66.9 Obesity, unspecified (principal); Z68.32 Body mass index [BMI] 32.0-32.9, adult; Z90.3 Acquired absence of stomach [part of]; Z98.84 Bariatric surgery status
CPT/HCPCS: 98967

== ENCOUNTER → 2024-12-26 09:13 | Outpatient (BNVA) | payer OTHER, SELFPAY | PROVIDERS: Visit Provider Physician Assistant Surgical | DX: Z98.84 Bariatric surgery status (principal) | CPT/HCPCS: 98967 ==

== ENCOUNTER 2025-01-31 11:00 | Outpatient (REF) | payer OTHER, SELFPAY ==
[2025-01-31 11:12] LABS: MANUAL DIFF FLAG NO
[2025-01-31 11:38] LABS: Hematocrit 36.1 % (37.0-47.0); Hemoglobin 11.5 g/dl (12.0-16.0); Imm Gran Abs Auto 0.02 X10*3/uL (0.00-0.03); Imm Gran Pct Auto 0.3 % (0.0-0.4); Lymphocytes Absolute Auto 3.0 X10*3/uL (1.2-4.9); Mean Corpuscular HGB Conc 31.9 g/dl (31.0-35.0); Mean Corpuscular Hemoglobin 25.2 pg (27.0-33.0); Mean Corpuscular Volume 79.2 fL (80.0-98.0); NRBC Abs Auto 0.000 X10*3/uL (0.0-0.012); NRBC Pct Auto 0.0 /100WBC (0.0-0.2); Platelet Count 332 X10*3/uL (160-400); Red Blood Count 4.56 X10*6/uL (4.20-5.50); White Blood Count 6.8 X10*3/uL (4.8-10.8)
--- OUTSIDE RECORDS SUMMARY | 2025-01-31 11:47 | XMS_ITS | Clinical Summary ---
Author Organization [facility] Address [address] [place] [address] Care Team Providers Care Radiographer Technologist Name Role Phone Lukasz Mansfield MD Primary Care Provider [phone] Surgical History Surgery Date Site/Laterality Comments TONSILLECTOMY [...] Screening: P ap Smear 01/02/2012 COVID-19 Vaccine ( - 2023-2 5 season) 2024 Depression Screening 06/29/2024 DTaP,Tdap,and Td Vaccines (2 - Td or Tdap) 01/17/2025 01/17/2015 Influenza Vaccine (#1) 2025 HIB Vaccines Aged Out No longer [...] 5 Years) and At-Risk Patients (6 to 49 Years) Aged Out No longer eligi ble based on patient's age to complete this topic RSV Immunization Patients Un arnold 20 months Aged Out No longer eligible b ased on patient's age to complete this topic Varicella Vaccines Aged Out No longer eligible based on patient's age to complete this topic Care Teams Radiographer Technologist Relationship Specialty Start Date End Date Lukasz Mansfield MD [address] [place] [address] PCP - General Internal Medicine 02/10/14
--- OUTSIDE RECORDS SUMMARY | 2025-01-31 11:47 | XMS_ITS | Clinical Summary ---
Author Organization [facility] Address [address] [place] [address] Care Team Providers Care Beef Cattle Grazier Name Role Phone Lukasz Mansfield MD Primary Care Provider Alyssa marmolejo Allergies No known active allergies Medications Medication Sig Dispensed Refills Start Date End Date Status Triamcinolone Acetonide (NASACORT AQ) 55 MCG/ACT AerosolIndications:A cute recurrent frontal sinusitis 2 Sprays by Each Nare route daily. 1 Bottle 2 10/20/2015 Active desogestrel-ethinyl estradiol (APRI) 0.15-30 MG-MCG per tablet Take 1 tablet by mouth daily. 28 Tab 12 09/08/2016 Active clotrimazole-betamet hasone (LOTRISONE) creamIndications:Acu te vaginitis Apply to area sparingly twice a day for up to two weeks 30 g 0 10/14/2016 Active Active Problems Problem Noted Date Hirsutism 08/19/2016 PCOS (polycystic ovarian syndrome) 11/24 Immunizations Name Administration Dates Next Due PPD-RBMG 01/17/2015 Tdap 01/17/2015 Family History Medical History Relation Name Comments Hypertension Mother CA Breast Mother's side 2 aunt Relation Name Status Comments Brother 1 [...] Used Date Smoking Tobacco: Some Days Cigarettes 1 Last attempted to quit: 08/16/2011 Smokeless Tobacco: Never Tobacco Cessation:Ready to Q uit: No; Counseling Given: Yes Comments:2 cigs per day x1 year Alcohol Use Standard Drinks/Week Comments Yes 0 (1 standard drink = 0.6 oz pur e alcohol) occ Sex Assigned at Date Recorded Not on file Last Filed Vital Signs Vital Sign Reading Time Taken Comments Blood Pressure 106/70 11/04/2016 2:59 PM EDT Pulse 80 11/04/2016 2:59 PM EDT Temperature 37.1 C (98.7 F) 04/22/2016 11:26 AM EDT Respiratory Rate 16 11/04/2016 2:59 PM EDT Oxygen Saturation 99% 10/20/2015 9:01 AM EDT Inhaled Oxygen Concentration - - Weight 100.7 kg (222 lb 1.6 oz) 11/04/2016 2:59 PM EDT Height 174 cm (5' 8.5 ) 10/14/2016 3:05 PM EDT Body Mass Index 33.28 10/14/2016 3:05 PM EDT Plan of Treatment Health Maintenance Due Date Last Done Comments Covid-19 Vaccine (#1) 1991 TOBACCO CHECK/ADVISE 2009 CERVICAL CANCER SCREENING 08/16/2018 08/16/2015, BASELINE HEALTH EXAM 18-39 04/25/202104/25, 04/22/2016, 06/28/2015, Additional history exists CHOLESTEROL SCREENING 04/25/2021 04/25/2016, 015 BMI CHECK/ADVISE 06/29/2024 08/26/2016, , 04/22/2016, Additional history exists DTAP/TDAP/TD (2 - Td or Tdap) 01/17/2025 01/17/2015 INFLUENZA (#1) 2025 04/15/2016 (Exte rnal Completion of Vaccination per patient) PNEUMOCOCCAL VACCINE FOR HIG H RISK PATIENTS (#1) 01/02/2056 Care Teams Beef Cattle Grazier Relationship Specialty Start Date End Date Lukasz Mansfield MD PCP - General Internal Medicine 08/26/16
[2025-01-31 12:05] LABS: Hemoglobin A1C 116.3060 umol/L; Total Hemoglobin (HGBA1C) 3080.8440 umol/L
[2025-01-31 12:12] LABS: Anion Gap 12 (12-20)
[2025-01-31 12:32] LABS: Alanine Aminotransferase 17 U/L (0-31); Albumin Level 4.2 g/dL (3.5-5.0); Alkaline Phosphatase 98 U/L (39-117); Aspartate Amino Transferase 23 U/L (5-31); Blood Urea Nitrogen 13 mg/dL (9-16); Calcium 9.3 mg/dL (8.4-10.2); Carbon Dioxide 27 mmol/L (22-29); Chloride 106 mmol/L (96-108); Cholesterol 152 mg/dL (<200); Estimated Glomerular Filt Rate > 60; Ferritin 10 ng/mL (10-122); HDL Cholesterol 57 mg/dL (>40); Iron 55 mcg/dL (30-160); Percent Iron Saturation 15 % (15-50); Potassium 4.2 mmol/L (3.3-5.1); Sodium 141 mmol/L (135-145); Total Iron Binding Capacity 367 mcg/dL (228-428); Total Protein 7.1 g/dL (6.5-8.0); Triglycerides 81 mg/dL (<150); Unsaturated Iron Binding 312 ug/dL
[2025-01-31 12:41] LABS: Folate 13.9 ng/mL (> or = 4.0); Vitamin B12 786 pg/mL (200-900)
== END 2025-01-31 11:01 | disposition home or self-care (01) ==
LOC: HO.LAB 11:00
PROVIDERS: Visit Provider Physician Assistant Surgical
DX: Z98.84 Bariatric surgery status (principal)
CPT/HCPCS: 36415; 80053; 80061; 82306; 82607; 82728; 82746; 83036; 83525; 83540; 84425; 84443; 84590; 84630; 85025; 86140

== ENCOUNTER 2025-02-01 12:09 | Outpatient (AMB) | payer OTHER, SELFPAY ==
--- NOTE | 2025-02-01 12:02 | A.OFFVIS_ITS ---
VS Expanded 02/01/25 12:05 Height 5 ft 8 in Weight 205 lb BMI 31.2 Intake Visit Reasons: TELEPHONE, PO LSG 07/26/24 Allergies amoxicillin Allergy (Unknown, Verified 08/01/24 14:38) nausea and vomiting clarithromycin Allergy (Verified 08/01/24 14:38) Hives Penicillins Adverse Reaction (Intermediate, Verified 08/01/24 14:38) Vomiting HPI Comments Details: This?is a?35?yo F who is s/p LSG 07/26/2024. Presents for 6mo post op visit. Weight loss of 7.8lbs since last OV 5w ago. No complaints of nausea, emesis, abdominal pain Rare reflux, maybe once every 2 weeks with foods that trigger, will take 1 omeprazole. Rare constipation. Present meal plan includes: 2 Fairlife shakes - takes 2.5 hours to drink one meal which is protein and sometimes fruit or veg takes BariLife MVI with iron - trying to incorporate more protein via whole foods; able to eat salad more easily Exercise routine includes: likes elliptiical or Arc skills trainer, has a walking pad at home walks at park 3-4 miles [facility] Medical History (Updated 08/04/24 @ 00:01 by Background Carlos) GERD (gastroesophageal reflux disease) Morbid obesity Surgical History (Updated 08/04/24 @ 00:01 by Background Carlos) S/P laparoscopic sleeve gastrectomy History of esophagogastroduodenoscopy (EGD) Hx of tonsillectomy Family History Maternal Aunt Breast cancer Social History Household Members: None Housing: Apartment Are you a primary care management coordinator to a significant other at home: No Do you presently have visiting nurse or other home services: No Alcohol intake: former Patient Tobacco Use Status: Never used Tobacco service: No Telehealth Telehealth Telehealth Platform: Telephone Location of provider rendering services: other Location of patient: address on file Patient Identification confirmed using: Name, : Yes Telehealth method: voice only Patient verbally consented to treatment: Yes Patient verbally consented to billing insurance company: Yes Patient informed of any privacy concerns related to visit: Yes Minutes spent on Phone/Video with Pt.: 15 Assessment & Plan Assessment & Plan (1) S/P laparoscopic sleeve gastrectomy: Code(s): Z98.84 - Bariatric surgery status Category: Surgical (2) Obesity: Code(s): E66.9 - Obesity, unspecified Category: Medical Plan Pt is satisfied with pace of weight loss and incorporating more whole foods. Labs reviewed, some vit levels still pending. RTC 3mo.
[2025-02-01 12:05] VITALS: BMI 31.2
--- OUTSIDE RECORDS SUMMARY | 2025-02-01 12:51 | XMS_ITS | Clinical Summary ---
Author Organization [facility] Address [address] [place] [address] Care Team Providers Care Candy Spreader Name Role Phone Lukasz Mansfield MD Primary Care Provider [phone] Surgical History Surgery Date Site/Laterality Comments TONSILLECTOMY [...] Screening: P ap Smear 01/02/2012 COVID-19 Vaccine (1 - 2023-2 5 season) 2024 Depression Screening [...] age to complete this topic Care Teams Candy Spreader Relationship Specialty Start Date End Date Lukasz Mansfield MD [address] [place] [address] PCP - General Internal Medicine 02/10/14
== END 2025-02-01 12:20 | disposition home or self-care (01) ==
LOC: HO.HBS 12:09
PROVIDERS: Visit Provider Physician Assistant Surgical
DX: E66.9 Obesity, unspecified (principal); Z68.31 Body mass index [BMI] 31.0-31.9, adult; Z90.3 Acquired absence of stomach [part of]; Z98.84 Bariatric surgery status
CPT/HCPCS: 98967

== ENCOUNTER → 2025-02-01 12:09 | Outpatient (BNVA) | payer OTHER, SELFPAY | PROVIDERS: Visit Provider Physician Assistant Surgical | DX: E66.9 Obesity, unspecified (principal); Z68.31 Body mass index [BMI] 31.0-31.9, adult; Z90.3 Acquired absence of stomach [part of] | CPT/HCPCS: 98967 ==

== ENCOUNTER 2025-05-08 12:16 | Outpatient (AMB) | payer OTHER, SELFPAY ==
--- NOTE | 2025-05-08 12:04 | A.OFFVIS_ITS ---
VS Expanded 05/08/25 12:07 Height 5 ft 8 in Weight 191 lb BMI 29.0 Intake Visit Reasons: PHONE PO LSG 07/26/24 Allergies amoxicillin Allergy (Unknown, Verified 08/01/24 14:38) nausea and vomiting clarithromycin Allergy (Verified 08/01/24 14:38) Hives Penicillins Adverse Reaction (Intermediate, Verified 08/01/24 14:38) Vomiting Medication List - Last Reconciled 05/08/25 by BEV Delgado [Vitamin A acetate 3,000 mcg PO DAILY] HPI Comments Details: This is a 35 yo F who is s/p LSG 07/26/2024. Presents for 10mo post op visit. Weight loss of 14lbs since last OV in January. No complaints of nausea, emesis, abdominal pain. Reports no reflux since last visit- thinks it was related to chocolate shakes. Rare constipation. Thinks her ideal weight would be around 170-180lbs. She notes a gain of a few lbs around the time of her menstrual cycle. Her cycles have regulated now with weight loss. 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 [facility] Medical History (Updated 05/08/25 @ 12:11 by BEV Delgado) GERD (gastroesophageal reflux disease) Morbid obesity Surgical History (Updated 08/04/24 @ 00:01 by Saloni Gonzalez) S/P laparoscopic sleeve gastrectomy History of esophagogastroduodenoscopy (EGD) Hx of tonsillectomy Family History Maternal Aunt Breast cancer Social History Household Members: None Housing: Apartment Are you a primary care transition coordinator to a significant other at home: No Do you presently have visiting nurse or other home services: No Alcohol intake: former Patient Tobacco Use Status: Never used Tobacco service: No Telehealth Telehealth Telehealth Platform: Telephone Location of provider rendering services: other Location of patient: address on file Patient Identification confirmed using: Name, : Yes Telehealth method: voice only Patient verbally consented to treatment: Yes Patient verbally consented to billing insurance company: Yes Patient informed of any privacy concerns related to visit: Yes Minutes spent on Phone/Video with Pt.: 16 Assessment & Plan Assessment & Plan (1) S/P laparoscopic sleeve gastrectomy: Code(s): Z98.84 - Bariatric surgery status Category: Surgical (2) Overweight: Code(s): E66.3 - Overweight Category: Medical Plan Pt doing well on current meal plan. She will continue this as she feels it works well for her. We discussed that she is no longer obese. She recognizes that her exercise is below weekly calorie goal, however she is trying to juggle school with work and other obligations. No further reflux. Labs from January reviewed. RTC 3-4 months for TV.
[2025-05-08 12:07] VITALS: BMI 29.0
--- OUTSIDE RECORDS SUMMARY | 2025-05-08 14:35 | XMS_ITS | Clinical Summary ---
Author Organization [facility] Address [address] [place] [address] Care Team Providers Care Web Master Name Role Phone Lukasz Mansfield MD Primary Care Provider [phone] Surgical History Surgery Date Site/Laterality Comments TONSILLECTOMY [...] Used Date Smoking Tobacco: Some Days Cigarettes 0 Last attempted to quit: 08/16/2011 Smokeless Tobacco: [...] Cervical Cancer Screening: P ap Smear 01/02/2012 HPV Vaccines (1 - 3-dose SCD M series) 2018 Depression Screening 06/29/2024 DTaP,Tdap,and Td Vaccines (2 - Td or Tdap) 01/17/2025 01/17/2015 COVID-19 Vaccine ( - 2023-2 5 season) 2025 Influenza Vaccine (#1) 2025 RSV Immunization Adult Patie nts (1 - 1-dose 75+ series) 2066 HIB Vaccines Aged Out No longer eligi [...] age to complete this topic Care Teams Web Master Relationship Specialty Start Date End Date Lukasz Mansfield MD [address] [place] [address] PCP - General Internal Medicine 02/10/14
== END 2025-05-08 12:18 | disposition home or self-care (01) ==
LOC: HO.HBS 12:16
PROVIDERS: Visit Provider Physician Assistant Surgical
DX: E66.3 Overweight (principal); Z68.29 Body mass index [BMI] 29.0-29.9, adult; Z90.3 Acquired absence of stomach [part of]; Z98.84 Bariatric surgery status
CPT/HCPCS: 98967